=== PATIENT | male | born 1990 | race Caucasian/White ===

== ENCOUNTER → 2016-07-26 | Outpatient (REF) | payer OTHER ==
[~2016-07-26] MED LIST: PROZ20CA11 PO; SERO400T3 PO; no meds
== END ==
LOC: M SFHCPLAZ 16:51
PROVIDERS: ATTEND Physician Assistant Medical
DX: R30.0 Dysuria (principal)

== ENCOUNTER 2016-07-30 12:05 | Emergency (ER) | payer OTHER ==
[2016-07-30] MEDS ORDERED: MORPHINE 4 MG/ML 1ML SYRINGE As Ordered ONE (15:05)
[2016-07-30] MEDS ORDERED: ONDANSETRON 4MG/2ML VIAL (J2405) As Ordered ONE (15:05)
--- NOTE | 2016-07-30 15:31 | REP ---
CT ABDOMEN AND PELVIS WITHOUT CONTRAST: 07/30/2016. Comparison: 04/23/2016 CT. Clinical history: Right flank abdominal pain. Technique: Renal stone protocol without oral or IV contrast and with both coronal and sagittal reconstructions. Findings: CT abdomen: Lung bases are clear. Heart is not enlarged. There is a calcified granuloma in the left lower lobe. There is no cardiomegaly, pericardial thickening or effusion. No hiatal hernia. There is no hepatosplenomegaly. The vertical diameter of the liver is 17 cm in midclavicular line which is normal range. Left lobe not enlarged. No hepatic or splenic focal lesion, biliary dilatation or ascites in the upper abdomen. Gallbladder without calcified stone or mass. The pancreas shows no mass, ductal dilatation or inflammatory change. No peripancreatic adenopathy. Adrenal glands normal. The left kidney shows no stone, hydronephrosis or mass. The right kidney shows calcification of the anterior pyramid in the interpolar region about 2 mm size. Extrarenal pelvis noted. The right ureter is seen dilated and on image 132 in the deep pelvis just above the UVJ there is a 2.5 mm stone seen best on image 132. Bladder is nearly empty, but there is no stone within it or its wall. The right kidney is smaller than the left. There is a partial duplication with a dilated upper pole moiety while the lower pole has a separate ureter, which has normal caliber. These appear to fuse distally in the mid upper pelvis to the right of midline. The left kidney shows no stone or hydronephrosis. I do not see any duplication of the left collecting system without stones, hydronephrosis or hydroureter. No left ureteral stone. CT pelvis: Stones, distal ureteral stone as described above. No abdominal or pelvic adenopathy, ascites or free air. Bones unchanged from the previous study and without acute finding. Impression: 1. 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 The lower pole moiety is not dilated and fuses with the upper pole moiety distally. The left side without stone or hydronephrosis. No other finding. Signed by Erich Edmond MD 07/30/2016 06:00 P
[2016-07-30 15:41] LABS: BASO % 0.4 % (0.0-1.0); EOS # 0.1 K/mm3 (0.0-0.50); EOS % 0.7 % (0.0-3.0); LARGE UNSTAINED CELL # 0.2 K/mm3 (0.0-0.4); LARGE UNSTAINED CELL % 1.9 % (0.0-4.0); LYMPH # 1.8 K/mm3 (1.5-6.5); LYMPH % 15.4 % (24.0-44.0); MEAN CORPUSCULAR HEMOGLOBIN 28.7 pg (27.0-33.0); MEAN CORPUSCULAR HGB CONC 33.6 g/dl (32.0-36.5); MEAN CORPUSCULAR VOLUME 85.3 fl (80.0-96.0); MONO # 0.6 K/mm3 (0.0-0.8); NEUTROPHILS # 8.9 K/mm3 (1.8-7.7); NEUTROPHILS % 76.7 % (36.0-66.0); PLATELET COUNT, AUTOMATED 265 k/mm3 (150-450); RED CELL DISTRIBUTION WIDTH 12.6 % (11.5-14.5); WHITE BLOOD COUNT 11.6 K/mm3 (4.0-10.0)
[2016-07-30 15:52] LABS: ALBUMIN 4.3 GM/DL (3.2-5.2); ALBUMIN/GLOBULIN RATIO 1.34 (1.00-1.93); ALKALINE PHOSPHATASE 104 U/L (45-117); ALT/SGPT 28 U/L (12-78); AMYLASE 34 U/L (25-115); ANION GAP 9 MEQ/L (8-16); AST/SGOT 17 U/L (15-37); BILIRUBIN,DIRECT < 0.1 MG/DL (0.0-0.2); BILIRUBIN,TOTAL 0.4 MG/DL (0.2-1.0); BLOOD UREA NITROGEN 11 MG/DL (7-18); CALCIUM LEVEL 9.2 MG/DL (8.5-10.1); CARBON DIOXIDE LEVEL 28 MEQ/L (21-32); CHLORIDE LEVEL 105 MEQ/L (98-107); CREATININE FOR GFR 0.78 MG/DL (0.70-1.30); GLOMERULAR FILTRATION RATE > 60.0 (>60); GLUCOSE, FASTING 82 MG/DL (70-105); SODIUM LEVEL 142 MEQ/L (136-145); TOTAL PROTEIN 7.5 GM/DL (6.4-8.2)
--- NOTE | 2016-07-30 16:38 | EDDOCDS ---
Physician Documentation [facility] Name: Rex Doe Age: 26 yrs Sex: Male : 1990 Arrival Date: 07/30/2016 Time: 12:05 Bed I2 / M2 Private MD: Nida Burton R. Disposition: 07/30/16 16:27 Discharged to Home/Self Care. Impression: Calculus of ureter - right UVJ stone. - Condition is Stable. - Discharge Instructions: Kidney Stones. - Prescriptions for Ibuprofen 800 mg Oral Tablet - take 1 tablet by ORAL route every 8 hours As needed take with food; 30 tablet. Ultram 50 mg Oral Tablet - take 1 tablet by ORAL route every 6 hours As needed MDD: 4 tabs; 20 tablet. Flomax 0.4 mg Oral Capsule, Sust. Release 24 hr - take 1 capsule by ORAL route once daily 1/2 hour following the same meal each day; 30 capsule. ZOFRAN ODT 4 mg - dissolve 1 tablet by ORAL route 4 times per day As needed do not chew, do not swallow whole; 10 tablet. - Medication Reconciliation, Local Pharmacy Hours, School Release Form - 1 day form. - Follow up: Milton Hankins; When: Call to arrange an appointment; Reason: Recheck today's complaints, Continuance of care. Follow up: Emergency Department; When: As needed; Reason: Worsening of conditions. - Problem is new. - Symptoms have improved. Historical: - Allergies: Augmentin; Percocet; - Home Meds: 1. Motrin 600 mg oral tab 4-6 hours prn (Last dose: 07/30/2016 11:15) - PMHx: kidney stone left side 5 years ago; pelvis fracture; - PSHx: orchiectomy; - Social history: Smoking status: Patient states former smoker of tobacco. No barriers to communication noted, The patient speaks fluent Ukrainian, Speaks appropriately for age. - Family history: Not pertinent. - : The pt / caregiver states he / she is not on anticoagulants. Home medication list is obtained from the patient. - Exposure Risk Screening:: None identified. Vital Signs: 07/30 12:07 BP 146 / 90; Pulse 87; Resp 18; Temp 98.9(O); Pulse Ox 100% on R/A; Weight 92.08 kg / elp 203 lbs (R); Height 6 ft. 1 in. (185.42 cm) (R); Pain 10/10; 15:48 BP 144 / 90; Pulse 89; Resp 18; Temp 98.0; Pulse Ox 99% ; Pain 2/10; jam1 16:27 BP 133 / 88; Pulse 89; Resp 18; Temp 98.4; Pulse Ox 99% ; Pain 1/10; jam1 12:07 Body Mass Index 26.78 (92.08 kg, 185.42 cm) elp MDM: 12:22 UA Ordered. EDMS 13:27 [facility] Payment Agreement was scanned into [employer] and attached to record. jp5 14:45 Financial registration complete. jp5 14:49 UA Reviewed. ar2 14:50 IV Saline Lock ordered. ar2 14:50 Undress patient appropriately for examination ordered. ar2 14:51 CT ABD & PELVIS: No Contrast Ordered. EDMS 14:51 NOTHING BY MOUTH+DIET ordered. EDMS 14:52 Amylase Ordered. EDMS 14:52 Basic Metabolic Profile Ordered. EDMS 14:52 CBC with Diff Ordered. EDMS 14:52 Lipase Ordered. EDMS 14:52 Liver Profile Ordered. EDMS 14:52 morphine 4 mg IVP once ordered. ar2 14:52 Ondansetron 4 mg IVP once ordered. ar2 16:20 CBC with Diff Reviewed. ar2 16:20 Amylase Reviewed. ar2 16:20 Basic Metabolic Profile Reviewed. ar2 16:20 Lipase Reviewed. ar2 16:20 Liver Profile Reviewed. ar2 16:20 CT ABD & PELVIS: No Contrast Reviewed. ar2 16:26 Dispense Urine Strainer ordered. ar2 Administered Medications: 15:15 Drug: Ondansetron 4 mg [ondansetron HCl 2 mg/mL intravenous solution (2 mL)] Route: kpj IVP; Site: right antecubital; 15:17 Drug: morphine 4 mg [morphine 4 mg/mL intravenous cartridge (1 mL)] Route: IVP; Site: kpj right antecubital; 15:45 Follow up: Response: Pain is decreased [facility] Signatures: Dispatcher [employer] EDMS Maria Isabel Cavanaugh RN RN Diane Luu RN RN srm Peters, Mary, RN RN mcp Robertshaw, Aaron, PA-C PA-C ar2 Dale Gutierrez jp5 The chart was reviewed and I authenticate all verbal orders and agree with the evaluation and treatment provided.Attachments: 13:27 [facility] Payment Agreement jp5 MTDD
--- NOTE | 2016-07-30 16:38 | EDDOCDS ---
Nurse's Notes [facility] Name: Rex Doe Age: 26 yrs Sex: Male : 1990 Arrival Date: 07/30/2016 Time: 12:05 Bed I2 / M2 Private MD: Nida Burton R. Diagnosis: Calculus of ureter-right UVJ stone Presentation: 07/30 12:16 Presenting complaint: Patient states: RLQ pain since yesterday. vomiting 5 times in srm past 24 hours. hx of kidney stones. pt states fever of 101+ and chills took ibuprofen at 1115 today. Presenting complaint: states has right tesicular pain. 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 Adult Sepsis Screening: The patient does not have new or worsening altered mentation. Patient's respiratory rate is less than 22. Systolic blood pressure is greater than 100. Patient has a qSOFA score of 0- Negative Sepsis Screen. Suicide/Homicide risk assessment- the patient denies having any suicidal and/or homicidal ideations and does not present with any other emotional, behavioral or mental health complaints. Status: Patient is not a creative services manager or dependent. Transition of care: patient was not received from another setting of care. 12:16 Acuity: FREDERICK Level 3 [facility] 12:16 Method Of Arrival: Walkin/Carried/Asstd [facility] Triage Assessment: 12:19 General: Appears in no apparent distress, Behavior is appropriate for age, cooperative. srm Pain: Pain currently is 10 out of 10 on a pain scale. HIV screening NA for this visit Offered previously. GI: Reports since right lower quad pain radiates to testicle. Historical: - Allergies: Augmentin; Percocet; - Home Meds: 1. Motrin 600 mg oral tab 4-6 hours prn (Last dose: 07/30/2016 11:15) - PMHx: kidney stone left side 5 years ago; pelvis fracture; - PSHx: orchiectomy; - Social history: Smoking status: Patient states former smoker of tobacco. No barriers to communication noted, The patient speaks fluent Egyptian, Speaks appropriately for age. - Family history: Not pertinent. - : The pt / caregiver states he / she is not on anticoagulants. Home medication list is obtained from the patient. - Exposure Risk Screening:: None identified. Screenin:10 Screening information is obtained from the patient. Fall risk: No risks identified. kpj Assistance ADL's: requires no assistance with activities of daily living. Abuse/DV Screen: The patient / caregiver reports he/she is: not in a situation that causes fear, pain or injury. Nutritional screening: No deficits noted. Advance Directives: Currently, there is no health care proxy. There is no active DNR order. There is no living will. There is no Power of Optical Instrument Assembler. Advance directive information has not previously been placed in an [facility] medical record. Further advance directive information is declined. home support is adequate. Assessment: 15:10 General: Appears in no apparent distress, well nourished, well groomed, Behavior is kpj appropriate for age, pleasant. Pain: Location: right flank Pain currently is 9 out of 10 on a pain scale. Pain radiates to right lower quadrant Quality of pain is described as aching. Neurological: Level of Consciousness is awake, alert, Oriented to person, place, time. Respiratory: Airway is patent Respiratory effort is even, unlabored, Respiratory pattern is regular, symmetrical, Breath sounds are clear bilaterally. GI: Abdomen is flat, non- distended Bowel sounds present X 4 quads. Abd is soft X 4 quads Abd is tender to palpation in posterior aspect of right lateral abdomen and right lower quadrant Reports lower abdominal pain, nausea, vomiting, Pain is 9 out of 10 on a pain scale. Derm: Skin is pink, warm & dry. 16:00 Reassessment: Patient appears in no apparent distress at this time. Patient denies pain kpj at this time. Patient states feeling better. Patient states symptoms have improved. Pain: Location: right lower quadrant and right flank Pain currently is 1 out of 10 on a pain scale. Respiratory: Airway is patent Respiratory effort is even, unlabored. Derm: Skin is pink, warm & dry. 16:36 General: Appears in no apparent distress, Behavior is cooperative. Neurological: No mcp deficits noted. Respiratory: Airway is patent Respiratory effort is even, unlabored. Derm: Skin is pink, warm & dry. Vital Signs: 12:07 BP 146 / 90; Pulse 87; Resp 18; Temp 98.9(O); Pulse Ox 100% on R/A; Weight 92.08 kg elp (R); Height 6 ft. 1 in. (185.42 cm) (R); Pain 10/10; 15:48 BP 144 / 90; Pulse 89; Resp 18; Temp 98.0; Pulse Ox 99% ; Pain 2/10; jam1 16:27 BP 133 / 88; Pulse 89; Resp 18; Temp 98.4; Pulse Ox 99% ; Pain 1/10; jam1 12:07 Body Mass Index 26.78 (92.08 kg, 185.42 cm) elp Vitals: 12:07 Log In Time: July 30, 2016 at 12:04. elp ED Course: 12:06 Patient visited by Lisette Coronel, RENY. elp 12:06 Nida Burton is Private Physician. elp 12:06 Patient moved to Waiting elp 12:07 Patient visited by Lisette Coronel PCA. elp 12:07 Patient moved to Pre RCE elp 12:18 Triage Initiated srm 12:26 UA Sent. srm 13:27 [facility] Payment Agreement was scanned into [employer] and attached to record. jp5 14:18 Patient moved to Triage 2 hs1 14:38 Chaim Gerardo PA-C is PHCP. ar2 14:38 Rex Goddard MD is Attending Physician. ar2 14:38 Patient visited by Chaim Gerardo PA-C. ar2 14:48 Patient moved to I2 / M2 jrd 15:10 Resting quietly. Awaiting lab results. Waiting for radiology results. kpj 15:10 The patient / caregiver is instructed regarding the plan of care and ED course. Patient kpj has correct armband on for positive identification. Bed in low position. Call light in reach. Side rails up X2. Diet: Patient is NPO. 15:10 Inserted saline lock: 20 gauge in right antecubital area The patient tolerated the kpj procedure well. 16:00 IV is patent, is intact, is free of redness or swelling. No procedures done that kpj require assistance. 16:14 CT ABD & PELVIS: No Contrast Returned. EDMS 16:26 Milton Hankins is Referral Physician. ar2 Administered Medications: 15:15 Drug: Ondansetron 4 mg [ondansetron HCl 2 mg/mL intravenous solution (2 mL)] Route: kpj IVP; Site: right antecubital; 15:17 Drug: morphine 4 mg [morphine 4 mg/mL intravenous cartridge (1 mL)] Route: IVP; Site: kpj right antecubital; 15:45 Follow up: Response: Pain is decreased mcp Order Results: Lab Order: UA; SPEC'M 07/30/16 12:23 Test: APPEARANCE, URINE; Value: HAZY; Range: CLEAR; Status: F Test: COLOR, URINE; Value: YELLOW; Range: YELLOW; Status: F Test: PH,URINE; Value: 5.0; Range: 5.0-9.0; Units: UNITS; Status: F Test: SPECIFIC GRAVITY URINE AUTO; Value: 1.032; Range: 1.002-1.035; Status: F Test: PROTEIN, URINE AUTO; Value: 1+; Range: NEGATIVE; Abnormal: Above high normal; Units: mg/dL; Status: F Test: GLUCOSE, URINE (UA) AUTO; Value: NEGATIVE; Range: NEGATIVE; Units: mg/dL; Status: F Test: KETONE, URINE AUTO; Value: TRACE; Range: NEGATIVE; Abnormal: Above high normal; Units: mg/dL; Status: F Test: UROBILINOGEN, URINE AUTO; Value: 0.2; Range: 0.0-2.0; Units: mg/dL; Status: F Test: BILIRUBIN, URINE AUTO; Value: NEGATIVE; Range: NEGATIVE; Status: F Test: NITRITE, URINE AUTO; Value: NEGATIVE; Range: NEGATIVE; Status: F Test: LEUKOCYTE ESTERASE, URINE AUTO; Value: NEGATIVE; Range: NEGATIVE; Status: F Test: BLOOD, URINE BLOOD; Value: 1+; Range: NEGATIVE; Abnormal: Above high normal; Status: F Test: WBC, URINE AUTO; Value: 17; Range: 0-3; Abnormal: Above high normal; Units: /HPF; Status: F Test: RBC, URINE AUTO; Value: 0; Range: 0-3; Units: /HPF; Status: F Test: BACTERIA, URINE AUTO; Value: NEGATIVE; Range: NEGATIVE; Status: F Test: SQUAMOUS EPITHELIAL CELL UR AU; Value: 0; Range: 0-6; Units: /HPF; Status: F Test: MUCUS, URINE; Value: LARGE; Range: NEGATIVE; Status: F Test: HYALINE CAST, URINE AUTO; Value: 0; Range: 0-1; Units: /LPF; Status: F Test: AMORPHOUS SEDIMENT; Value: SMALL; Range: NEGATIVE; Abnormal: Above high normal; Status: F Lab Order: Amylase; SPEC'M 07/30/16 15:17 Test: AMYLASE; Value: 34; Range: 25-115; Units: U/L; Status: F Lab Order: Basic Metabolic Profile; SPEC'M 07/30/16 15:17 Test: GLUCOSE, FASTING; Value: 82; Range: 70-105; Units: MG/DL; Status: F Test: BLOOD UREA NITROGEN; Value: 11; Range: 7-18; Units: MG/DL; Status: F Test: CREATININE FOR GFR; Value: 0.78; Range: 0.70-1.30; Units: MG/DL; Status: F Test: GLOMERULAR FILTRATION RATE; Value: > 60.0; Range: >60; Status: F Test: SODIUM LEVEL; Value: 142; Range: 136-145; Units: MEQ/L; Status: F Test: POTASSIUM SERUM; Value: 4.0; Range: 3.5-5.1; Units: MEQ/L; Status: F Test: CHLORIDE LEVEL; Value: 105; Range: 98-107; Units: MEQ/L; Status: F Test: CARBON DIOXIDE LEVEL; Value: 28; Range: 21-32; Units: MEQ/L; Status: F Test: ANION GAP; Value: 9; Range: 8-16; Units: MEQ/L; Status: F Test: CALCIUM LEVEL; Value: 9.2; Range: 8.5-10.1; Units: MG/DL; Status: F Test Note: ; Units are mL/min/1.73 m2 Chronic Kidney Disease Staging per NKF: Stage I & II GFR >=60 Normal to Mildly Decreased Stage III GFR 30-59 Moderately Decreased Stage IV GFR 15-29 Severely Decreased Stage V GFR <15 Very Little GFR Left ESRD GFR <15 on ASSOCIATE FINANCIAL REPRESENTATIVE Lab Order: CBC with Diff; SPEC'M 07/30/16 15:17 Test: WHITE BLOOD COUNT; Value: 11.6; Range: 4.0-10.0; Abnormal: Above high normal; Units: K/mm3; Status: F Test: RED BLOOD COUNT; Value: 5.21; Range: 4.30-6.10; Units: M/mm3; Status: F Test: HEMOGLOBIN; Value: 14.9; Range: 14.0-18.0; Units: g/dl; Status: F Test: HEMATOCRIT; Value: 44.4; Range: 42.0-52.0; Units: %; Status: F Test: MEAN CORPUSCULAR VOLUME; Value: 85.3; Range: 80.0-96.0; Units: fl; Status: F Test: MEAN CORPUSCULAR HEMOGLOBIN; Value: 28.7; Range: 27.0-33.0; Units: pg; Status: F Test: MEAN CORPUSCULAR HGB CONC; Value: 33.6; Range: 32.0-36.5; Units: g/dl; Status: F Test: RED CELL DISTRIBUTION WIDTH; Value: 12.6; Range: 11.5-14.5; Units: %; Status: F Test: PLATELET COUNT, AUTOMATED; Value: 265; Range: 150-450; Units: k/mm3; Status: F Test: NEUTROPHILS %; Value: 76.7; Range: 36.0-66.0; Abnormal: Above high normal; Units: %; Status: F Test: LYMPH %; Value: 15.4; Range: 24.0-44.0; Abnormal: Below low normal; Units: %; Status: F Test: MONO %; Value: 5.0; Range: 0.0-5.0; Units: %; Status: F Test: EOS %; Value: 0.7; Range: 0.0-3.0; Units: %; Status: F Test: BASO %; Value: 0.4; Range: 0.0-1.0; Units: %; Status: F Test: LARGE UNSTAINED CELL %; Value: 1.9; Range: 0.0-4.0; Units: %; Status: F Test: NEUTROPHILS #; Value: 8.9; Range: 1.8-7.7; Abnormal: Above high normal; Units: K/mm3; Status: F Test: LYMPH #; Value: 1.8; Range: 1.5-6.5; Units: K/mm3; Status: F Test: MONO #; Value: 0.6; Range: 0.0-0.8; Units: K/mm3; Status: F Test: EOS #; Value: 0.1; Range: 0.0-0.50; Units: K/mm3; Status: F Test: BASO #; Value: 0.0; Range: 0.0-0.2; Units: K/mm3; Status: F Test: LARGE UNSTAINED CELL #; Value: 0.2; Range: 0.0-0.4; Units: K/mm3; Status: F Lab Order: Lipase; SPEC'M 07/30/16 15:17 Test: LIPASE; Value: 143; Range: 73-393; Units: U/L; Status: F Lab Order: Liver Profile; SPEC'M 07/30/16 15:17 Test: AST/SGOT; Value: 17; Range: 15-37; Units: U/L; Status: F Test: ALT/SGPT; Value: 28; Range: 12-78; Units: U/L; Status: F Test: ALKALINE PHOSPHATASE; Value: 104; Range: 45-117; Units: U/L; Status: F Test: BILIRUBIN,TOTAL; Value: 0.4; Range: 0.2-1.0; Units: MG/DL; Status: F Test: BILIRUBIN,DIRECT; Value: < 0.1; Range: 0.0-0.2; Units: MG/DL; Status: F Test: TOTAL PROTEIN; Value: 7.5; Range: 6.4-8.2; Units: GM/DL; Status: F Test: ALBUMIN; Value: 4.3; Range: 3.2-5.2; Units: GM/DL; Status: F Test: ALBUMIN/GLOBULIN RATIO; Value: 1.34; Range: 1.00-1.93; Status: F Radiology Order: CT ABD & PELVIS: No Contrast Test: CT ABD & PELVIS: No Contrast REASON FOR EXAMINATION: right flank/abdominal pain; CT ABDOMEN AND PELVIS WITHOUT CONTRAST: 07/30/2016.; ; Comparison: 04/23/2016 CT.; ; Clinical history: Right flank abdominal pain.; ; Technique: Renal stone protocol without oral or IV contrast and with both; coronal and sagittal reconstructions.; ; Findings:; ; CT abdomen: Lung bases are clear. Heart is not enlarged. There is a calcified; granuloma in the left lower lobe. There is no cardiomegaly, pericardial; thickening or effusion. No hiatal hernia. There is no hepatosplenomegaly. The; vertical diameter of the liver is 17 cm in midclavicular line which is normal; range. Left lobe not enlarged. No hepatic or splenic focal lesion, biliary; dilatation or ascites in the upper abdomen. Gallbladder without calcified stone; or mass. The pancreas shows no mass, ductal dilatation or inflammatory change.; No peripancreatic adenopathy. Adrenal glands normal. The left kidney shows no; stone, hydronephrosis or mass. The right kidney shows calcification of the; anterior pyramid in the interpolar region about 2 mm size. Extrarenal pelvis; noted. The right ureter is seen dilated and on image 132 in the deep pelvis just; above the UVJ there is a 2.5 mm stone seen best on image 132. Bladder is nearly; empty, but there is no stone within it or its wall. The right kidney is smaller; than the left. There is a partial duplication with a dilated upper pole moiety; while the lower pole has a separate ureter, which has normal caliber. These; appear to fuse distally in the mid upper pelvis to the right of midline. The; left kidney shows no stone or hydronephrosis. I do not see any duplication of; the left collecting system without stones, hydronephrosis or hydroureter. No; left ureteral stone.; ; CT pelvis: Stones, distal ureteral stone as described above. No abdominal or; pelvic adenopathy, ascites or free air. 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 The left side without stone or hydronephrosis. No other finding.; ; ; ; ; Unreviewed; Outcome: 16:00 CT Study completed. [facility] 16:27 Discharge ordered by Provider. ar2 16:36 Discharge Assessment: patient administered narcotics - no. The following High Risk [facility] Discharge criteria are identified: None. Discharged to home ambulatory. Condition: stable. Discharge instructions given to patient, Instructed on discharge instructions, follow up and referral plans. medication usage, Demonstrated understanding of instructions, medications, Pt was receptive of discharge instructions/ teaching. Prescriptions given X 4. Property sent home with patient. 16:37 Patient left the ED. [facility] Signatures: Dispatcher [employer] EDMS Jobson, Maria Isabel, RN RN kpj Diane Chavez, RN RN [facility] Yepez, Corinna, RN RN Leanna Little, JAVA ANDROID DEVELOPER JAVA ANDROID DEVELOPER jam1 Chaim Gerardo, ROSIE moore2 Mahi Penny RN RN hs1 Lisette Coronel, JAVA ANDROID DEVELOPER JAVA ANDROID DEVELOPER elp Jersey Mackay, JAVA ANDROID DEVELOPER JAVA ANDROID DEVELOPER jrd Dale Gutierrez jp5 MTDD
--- NOTE | 2016-08-01 17:38 | EDDOCDS ---
Physician Documentation [facility] Name: Rex Doe Age: 26 yrs Sex: Male : 1990 Arrival Date: 07/30/2016 Time: 12:05 Bed I2 / M2 Private MD: Nida Burton R. Disposition: 07/30/16 16:27 Discharged to Home/Self Care. Impression: Calculus of ureter - right UVJ stone. - Condition is Stable. - Discharge Instructions: Kidney Stones. - Prescriptions for Ibuprofen 800 mg Oral Tablet - take 1 tablet by ORAL route every 8 hours As needed take with food; 30 tablet. Ultram 50 mg Oral Tablet - take 1 tablet by ORAL route every 6 hours As needed MDD: 4 tabs; 20 tablet. Flomax 0.4 mg Oral Capsule, Sust. Release 24 hr - take 1 capsule by ORAL route once daily 1/2 hour following the same meal each day; 30 capsule. ZOFRAN ODT 4 mg - dissolve 1 tablet by ORAL route 4 times per day As needed do not chew, do not swallow whole; 10 tablet. - Medication Reconciliation, Local Pharmacy Hours, School Release Form - 1 day form. - Follow up: Milton Hankins; When: Call to arrange an appointment; Reason: Recheck today's complaints, Continuance of care. Follow up: Emergency Department; When: As needed; Reason: Worsening of conditions. - Problem is new. - Symptoms have improved. Historical: - Allergies: Augmentin; Percocet; - Home Meds: 1. Motrin 600 mg oral tab 4-6 hours prn (Last dose: 07/30/2016 11:15) - PMHx: kidney stone left side 5 years ago; pelvis fracture; - PSHx: orchiectomy; - Social history: Smoking status: Patient states former smoker of tobacco. No barriers to communication noted, The patient speaks fluent Belarusian, Speaks appropriately for age. - Family history: Not pertinent. - : The pt / caregiver states he / she is not on anticoagulants. Home medication list is obtained from the patient. - Exposure Risk Screening:: None identified. Vital Signs: 07/30 12:07 BP 146 / 90; Pulse 87; Resp 18; Temp 98.9(O); Pulse Ox 100% on R/A; Weight 92.08 kg / elp 203 lbs (R); Height 6 ft. 1 in. (185.42 cm) (R); Pain 10/10; 15:48 BP 144 / 90; Pulse 89; Resp 18; Temp 98.0; Pulse Ox 99% ; Pain 2/10; jam1 16:27 BP 133 / 88; Pulse 89; Resp 18; Temp 98.4; Pulse Ox 99% ; Pain 1/10; jam1 12:07 Body Mass Index 26.78 (92.08 kg, 185.42 cm) elp MDM: 12:22 UA Ordered. EDMS 13:27 [facility] Payment Agreement was scanned into [employer] and attached to record. jp5 14:45 Financial registration complete. jp5 14:49 UA Reviewed. ar2 14:50 IV Saline Lock ordered. ar2 14:50 Undress patient appropriately for examination ordered. ar2 14:51 CT ABD & PELVIS: No Contrast Ordered. EDMS 14:51 NOTHING BY MOUTH+DIET ordered. EDMS 14:52 Amylase Ordered. EDMS 14:52 Basic Metabolic Profile Ordered. EDMS 14:52 CBC with Diff Ordered. EDMS 14:52 Lipase Ordered. EDMS 14:52 Liver Profile Ordered. EDMS 14:52 morphine 4 mg IVP once ordered. ar2 14:52 Ondansetron 4 mg IVP once ordered. ar2 16:20 CBC with Diff Reviewed. ar2 16:20 Amylase Reviewed. ar2 16:20 Basic Metabolic Profile Reviewed. ar2 16:20 Lipase Reviewed. ar2 16:20 Liver Profile Reviewed. ar2 16:20 CT ABD & PELVIS: No Contrast Reviewed. ar2 16:26 Dispense Urine Strainer ordered. ar2 07/31 11:04 T-Sheet-- Draft Copy was scanned into [employer] and attached to record. gb 11:04 Radiology Report was scanned into [employer] and attached to record. gb Administered Medications: 07/30 15:15 Drug: Ondansetron 4 mg [ondansetron HCl 2 mg/mL intravenous solution (2 mL)] Route: kpj IVP; Site: right antecubital; 15:17 Drug: morphine 4 mg [morphine 4 mg/mL intravenous cartridge (1 mL)] Route: IVP; Site: kpj right antecubital; 15:45 Follow up: Response: Pain is decreased mcp Signatures: Dispatcher [employer] Maria Isabel Lucia RN RN kpDiane Luu RN RN Corinna Burnham, RN RN Jeannette Heller, Fortunato Reg gb Chaim Gerardo PA-C PA-C ar2 Price, Jennalee jp5 The chart was reviewed and I authenticate all verbal orders and agree with the evaluation and treatment provided.Attachments: 13:27 [facility] Payment Agreement jp5 07/31 11:04 T-Sheet-- Draft Copy gb Chart Complete MTDD
--- NOTE | 2016-08-01 17:38 | EDDOCDS ---
Nurse's Notes [facility] Name: Rex Doe Age: 26 yrs Sex: Male : 1990 Arrival Date: 07/30/2016 Time: 12:05 Bed I2 / M2 Private MD: Nida Burton R. Diagnosis: Calculus of ureter-right UVJ stone Presentation: 07/30 12:16 Presenting complaint: Patient states: RLQ pain since yesterday. vomiting 5 times in srm past 24 hours. hx of kidney stones. pt states fever of 101+ and chills took ibuprofen at 1115 today. Presenting complaint: states has right tesicular pain. 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 Adult Sepsis Screening: The patient does not have new or worsening altered mentation. Patient's respiratory rate is less than 22. Systolic blood pressure is greater than 100. Patient has a qSOFA score of 0- Negative Sepsis Screen. Suicide/Homicide risk assessment- the patient denies having any suicidal and/or homicidal ideations and does not present with any other emotional, behavioral or mental health complaints. Status: Patient is not a repair servicer or dependent. Transition of care: patient was not received from another setting of care. 12:16 Acuity: FREDERICK Level 3 [facility] 12:16 Method Of Arrival: Walkin/Carried/Asstd [facility] Triage Assessment: 12:19 General: Appears in no apparent distress, Behavior is appropriate for age, cooperative. srm Pain: Pain currently is 10 out of 10 on a pain scale. HIV screening NA for this visit Offered previously. GI: Reports since right lower quad pain radiates to testicle. Historical: - Allergies: Augmentin; Percocet; - Home Meds: 1. Motrin 600 mg oral tab 4-6 hours prn (Last dose: 07/30/2016 11:15) - PMHx: kidney stone left side 5 years ago; pelvis fracture; - PSHx: orchiectomy; - Social history: Smoking status: Patient states former smoker of tobacco. No barriers to communication noted, The patient speaks fluent Bahamian, Speaks appropriately for age. - Family history: Not pertinent. - : The pt / caregiver states he / she is not on anticoagulants. Home medication list is obtained from the patient. - Exposure Risk Screening:: None identified. Screenin:10 Screening information is obtained from the patient. Fall risk: No risks identified. kpj Assistance ADL's: requires no assistance with activities of daily living. Abuse/DV Screen: The patient / caregiver reports he/she is: not in a situation that causes fear, pain or injury. Nutritional screening: No deficits noted. Advance Directives: Currently, there is no health care proxy. There is no active DNR order. There is no living will. There is no Power of Freight Coordinator. Advance directive information has not previously been placed in an [facility] medical record. Further advance directive information is declined. home support is adequate. Assessment: 15:10 General: Appears in no apparent distress, well nourished, well groomed, Behavior is kpj appropriate for age, pleasant. Pain: Location: right flank Pain currently is 9 out of 10 on a pain scale. Pain radiates to right lower quadrant Quality of pain is described as aching. Neurological: Level of Consciousness is awake, alert, Oriented to person, place, time. Respiratory: Airway is patent Respiratory effort is even, unlabored, Respiratory pattern is regular, symmetrical, Breath sounds are clear bilaterally. GI: Abdomen is flat, non- distended Bowel sounds present X 4 quads. Abd is soft X 4 quads Abd is tender to palpation in posterior aspect of right lateral abdomen and right lower quadrant Reports lower abdominal pain, nausea, vomiting, Pain is 9 out of 10 on a pain scale. Derm: Skin is pink, warm & dry. 16:00 Reassessment: Patient appears in no apparent distress at this time. Patient denies pain kpj at this time. Patient states feeling better. Patient states symptoms have improved. Pain: Location: right lower quadrant and right flank Pain currently is 1 out of 10 on a pain scale. Respiratory: Airway is patent Respiratory effort is even, unlabored. Derm: Skin is pink, warm & dry. 16:36 General: Appears in no apparent distress, Behavior is cooperative. Neurological: No mcp deficits noted. Respiratory: Airway is patent Respiratory effort is even, unlabored. Derm: Skin is pink, warm & dry. Vital Signs: 12:07 BP 146 / 90; Pulse 87; Resp 18; Temp 98.9(O); Pulse Ox 100% on R/A; Weight 92.08 kg elp (R); Height 6 ft. 1 in. (185.42 cm) (R); Pain 10/10; 15:48 BP 144 / 90; Pulse 89; Resp 18; Temp 98.0; Pulse Ox 99% ; Pain 2/10; jam1 16:27 BP 133 / 88; Pulse 89; Resp 18; Temp 98.4; Pulse Ox 99% ; Pain 1/10; jam1 12:07 Body Mass Index 26.78 (92.08 kg, 185.42 cm) elp Vitals: 12:07 Log In Time: July 30, 2016 at 12:04. elp ED Course: 12:06 Patient visited by Lisette Coronel PCA. elp 12:06 Nida Burton is Private Physician. elp 12:06 Patient moved to Waiting elp 12:07 Patient visited by Lisette Coronel PCA. elp 12:07 Patient moved to Pre RCE elp 12:18 Triage Initiated srm 12:26 UA Sent. srm 13:27 [facility] Payment Agreement was scanned into [email or web address] and attached to record. jp5 14:18 Patient moved to Triage 2 hs1 14:38 [facility] ar2 14:38 Rex Goddard MD is Attending Physician. ar2 14:38 Patient visited by Chaim Gerardo PA-C. ar2 14:48 Patient moved to I2 / M2 jrd 15:10 Resting quietly. Awaiting lab results. Waiting for radiology results. kpj 15:10 The patient / caregiver is instructed regarding the plan of care and ED course. Patient kpj has correct armband on for positive identification. Bed in low position. Call light in reach. Side rails up X2. Diet: Patient is NPO. 15:10 Inserted saline lock: 20 gauge in right antecubital area The patient tolerated the kpj procedure well. 16:00 IV is patent, is intact, is free of redness or swelling. No procedures done that kpj require assistance. 16:14 CT ABD & PELVIS: No Contrast Returned. EDMS 16:26 Milton Hankins is Referral Physician. ar2 18:16 CT ABD & PELVIS: No Contrast Returned. EDMS 07/31 11:04 T-Sheet-- Draft Copy was scanned into [email or web address] and attached to record. gb 11:04 Radiology Report was scanned into [email or web address] and attached to record. gb Administered Medications: 07/30 15:15 Drug: Ondansetron 4 mg [ondansetron HCl 2 mg/mL intravenous solution (2 mL)] Route: kpj IVP; Site: right antecubital; 15:17 Drug: morphine 4 mg [morphine 4 mg/mL intravenous cartridge (1 mL)] Route: IVP; Site: kpj right antecubital; 15:45 Follow up: Response: Pain is decreased mcp Order Results: Lab Order: UA; SPEC'M 07/30/16 12:23 Test: APPEARANCE, URINE; Value: HAZY; Range: CLEAR; Status: F Test: COLOR, URINE; Value: YELLOW; Range: YELLOW; Status: F Test: PH,URINE; Value: 5.0; Range: 5.0-9.0; Units: UNITS; Status: F Test: SPECIFIC GRAVITY URINE AUTO; Value: 1.032; Range: 1.002-1.035; Status: F Test: PROTEIN, URINE AUTO; Value: 1+; Range: NEGATIVE; Abnormal: Above high normal; Units: mg/dL; Status: F Test: GLUCOSE, URINE (UA) AUTO; Value: NEGATIVE; Range: NEGATIVE; Units: mg/dL; Status: F Test: KETONE, URINE AUTO; Value: TRACE; Range: NEGATIVE; Abnormal: Above high normal; Units: mg/dL; Status: F Test: UROBILINOGEN, URINE AUTO; Value: 0.2; Range: 0.0-2.0; Units: mg/dL; Status: F Test: BILIRUBIN, URINE AUTO; Value: NEGATIVE; Range: NEGATIVE; Status: F Test: NITRITE, URINE AUTO; Value: NEGATIVE; Range: NEGATIVE; Status: F Test: LEUKOCYTE ESTERASE, URINE AUTO; Value: NEGATIVE; Range: NEGATIVE; Status: F Test: BLOOD, URINE BLOOD; Value: 1+; Range: NEGATIVE; Abnormal: Above high normal; Status: F Test: WBC, URINE AUTO; Value: 17; Range: 0-3; Abnormal: Above high normal; Units: /HPF; Status: F Test: RBC, URINE AUTO; Value: 0; Range: 0-3; Units: /HPF; Status: F Test: BACTERIA, URINE AUTO; Value: NEGATIVE; Range: NEGATIVE; Status: F Test: SQUAMOUS EPITHELIAL CELL UR AU; Value: 0; Range: 0-6; Units: /HPF; Status: F Test: MUCUS, URINE; Value: LARGE; Range: NEGATIVE; Status: F Test: HYALINE CAST, URINE AUTO; Value: 0; Range: 0-1; Units: /LPF; Status: F Test: AMORPHOUS SEDIMENT; Value: SMALL; Range: NEGATIVE; Abnormal: Above high normal; Status: F Lab Order: Amylase; SPEC'M 07/30/16 15:17 Test: AMYLASE; Value: 34; Range: 25-115; Units: U/L; Status: F Lab Order: Basic Metabolic Profile; SPEC'M 07/30/16 15:17 Test: GLUCOSE, FASTING; Value: 82; Range: 70-105; Units: MG/DL; Status: F Test: BLOOD UREA NITROGEN; Value: 11; Range: 7-18; Units: MG/DL; Status: F Test: CREATININE FOR GFR; Value: 0.78; Range: 0.70-1.30; Units: MG/DL; Status: F Test: GLOMERULAR FILTRATION RATE; Value: > 60.0; Range: >60; Status: F Test: SODIUM LEVEL; Value: 142; Range: 136-145; Units: MEQ/L; Status: F Test: POTASSIUM SERUM; Value: 4.0; Range: 3.5-5.1; Units: MEQ/L; Status: F Test: CHLORIDE LEVEL; Value: 105; Range: 98-107; Units: MEQ/L; Status: F Test: CARBON DIOXIDE LEVEL; Value: 28; Range: 21-32; Units: MEQ/L; Status: F Test: ANION GAP; Value: 9; Range: 8-16; Units: MEQ/L; Status: F Test: CALCIUM LEVEL; Value: 9.2; Range: 8.5-10.1; Units: MG/DL; Status: F Test Note: ; Units are mL/min/1.73 m2 Chronic Kidney Disease Staging per NKF: Stage I & II GFR >=60 Normal to Mildly Decreased Stage III GFR 30-59 Moderately Decreased Stage IV GFR 15-29 Severely Decreased Stage V GFR <15 Very Little GFR Left ESRD GFR <15 on SLEEP LAB TECHNICIAN Lab Order: CBC with Diff; SPEC'M 07/30/16 15:17 Test: WHITE BLOOD COUNT; Value: 11.6; Range: 4.0-10.0; Abnormal: Above high normal; Units: K/mm3; Status: F Test: RED BLOOD COUNT; Value: 5.21; Range: 4.30-6.10; Units: M/mm3; Status: F Test: HEMOGLOBIN; Value: 14.9; Range: 14.0-18.0; Units: g/dl; Status: F Test: HEMATOCRIT; Value: 44.4; Range: 42.0-52.0; Units: %; Status: F Test: MEAN CORPUSCULAR VOLUME; Value: 85.3; Range: 80.0-96.0; Units: fl; Status: F Test: MEAN CORPUSCULAR HEMOGLOBIN; Value: 28.7; Range: 27.0-33.0; Units: pg; Status: F Test: MEAN CORPUSCULAR HGB CONC; Value: 33.6; Range: 32.0-36.5; Units: g/dl; Status: F Test: RED CELL DISTRIBUTION WIDTH; Value: 12.6; Range: 11.5-14.5; Units: %; Status: F Test: PLATELET COUNT, AUTOMATED; Value: 265; Range: 150-450; Units: k/mm3; Status: F Test: NEUTROPHILS %; Value: 76.7; Range: 36.0-66.0; Abnormal: Above high normal; Units: %; Status: F Test: LYMPH %; Value: 15.4; Range: 24.0-44.0; Abnormal: Below low normal; Units: %; Status: F Test: MONO %; Value: 5.0; Range: 0.0-5.0; Units: %; Status: F Test: EOS %; Value: 0.7; Range: 0.0-3.0; Units: %; Status: F Test: BASO %; Value: 0.4; Range: 0.0-1.0; Units: %; Status: F Test: LARGE UNSTAINED CELL %; Value: 1.9; Range: 0.0-4.0; Units: %; Status: F Test: NEUTROPHILS #; Value: 8.9; Range: 1.8-7.7; Abnormal: Above high normal; Units: K/mm3; Status: F Test: LYMPH #; Value: 1.8; Range: 1.5-6.5; Units: K/mm3; Status: F Test: MONO #; Value: 0.6; Range: 0.0-0.8; Units: K/mm3; Status: F Test: EOS #; Value: 0.1; Range: 0.0-0.50; Units: K/mm3; Status: F Test: BASO #; Value: 0.0; Range: 0.0-0.2; Units: K/mm3; Status: F Test: LARGE UNSTAINED CELL #; Value: 0.2; Range: 0.0-0.4; Units: K/mm3; Status: F Lab Order: Lipase; SPEC'M 07/30/16 15:17 Test: LIPASE; Value: 143; Range: 73-393; Units: U/L; Status: F Lab Order: Liver Profile; SPEC'M 07/30/16 15:17 Test: AST/SGOT; Value: 17; Range: 15-37; Units: U/L; Status: F Test: ALT/SGPT; Value: 28; Range: 12-78; Units: U/L; Status: F Test: ALKALINE PHOSPHATASE; Value: 104; Range: 45-117; Units: U/L; Status: F Test: BILIRUBIN,TOTAL; Value: 0.4; Range: 0.2-1.0; Units: MG/DL; Status: F Test: BILIRUBIN,DIRECT; Value: < 0.1; Range: 0.0-0.2; Units: MG/DL; Status: F Test: TOTAL PROTEIN; Value: 7.5; Range: 6.4-8.2; Units: GM/DL; Status: F Test: ALBUMIN; Value: 4.3; Range: 3.2-5.2; Units: GM/DL; Status: F Test: ALBUMIN/GLOBULIN RATIO; Value: 1.34; Range: 1.00-1.93; Status: F Radiology Order: CT ABD & PELVIS: No Contrast Test: CT ABD & PELVIS: No Contrast REASON FOR EXAMINATION: right flank/abdominal pain; CT ABDOMEN AND PELVIS WITHOUT CONTRAST: 07/30/2016.; ; Comparison: 04/23/2016 CT.; ; Clinical history: Right flank abdominal pain.; ; Technique: Renal stone protocol without oral or IV contrast and with both; coronal and sagittal reconstructions.; ; Findings:; ; CT abdomen: Lung bases are clear. Heart is not enlarged. There is a calcified; granuloma in the left lower lobe. There is no cardiomegaly, pericardial; thickening or effusion. No hiatal hernia. There is no hepatosplenomegaly. The; vertical diameter of the liver is 17 cm in midclavicular line which is normal; range. Left lobe not enlarged. No hepatic or splenic focal lesion, biliary; dilatation or ascites in the upper abdomen. Gallbladder without calcified stone; or mass. The pancreas shows no mass, ductal dilatation or inflammatory change.; No peripancreatic adenopathy. Adrenal glands normal. The left kidney shows no; stone, hydronephrosis or mass. The right kidney shows calcification of the; anterior pyramid in the interpolar region about 2 mm size. Extrarenal pelvis; noted. The right ureter is seen dilated and on image 132 in the deep pelvis just; above the UVJ there is a 2.5 mm stone seen best on image 132. Bladder is nearly; empty, but there is no stone within it or its wall. The right kidney is smaller; than the left. There is a partial duplication with a dilated upper pole moiety; while the lower pole has a separate ureter, which has normal caliber. These; appear to fuse distally in the mid upper pelvis to the right of midline. The; left kidney shows no stone or hydronephrosis. I do not see any duplication of; the left collecting system without stones, hydronephrosis or hydroureter. No; left ureteral stone.; ; CT pelvis: Stones, distal ureteral stone as described above. No abdominal or; pelvic adenopathy, ascites or free air. Bones unchanged from the previous study; and without acute finding.; ; Impression:; ; 1. 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 The lower pole moiety is not dilated and fuses with the upper pole moiety; distally. The left side without stone or hydronephrosis. No other finding.; ; ; Signed by; Erich Edmond MD 07/30/2016 06:00 P; Outcome: 16:00 CT Study completed. [facility] 16:27 Discharge ordered by Provider. [facility] 16:36 Discharge Assessment: patient administered narcotics - no. The following High Risk [facility] Discharge criteria are identified: None. Discharged to home ambulatory. Condition: stable. Discharge instructions given to patient, Instructed on discharge instructions, follow up and referral plans. medication usage, Demonstrated understanding of instructions, medications, Pt was receptive of discharge instructions/ teaching. Prescriptions given X 4. Property sent home with patient. 16:37 Patient left the ED. [facility] Signatures: Dispatcher [employer] EDRI Maria Isabel Cavanaugh RN RN Diane Durand RN RN Corinna Burnham RN RN mcp Murphy, Jane, PODIATRIC AIDE PODIATRIC AIDE jam1 Jeannette Lara, Reg Reg gb Chaim Gerardo, PA-Otilio PA-Otilio ar2 Mahi Penny RN RN hs1 Lisette Coronel, PODIATRIC AIDE PODIATRIC AIDE Jersey Aleman, PODIATRIC AIDE PODIATRIC AIDE Dale Hernandez jp5 Chart Complete MTDLissette
--- NOTE | 2016-08-01 17:38 | EDDOCDS ---
Physician Documentation [facility] Name: Rex Doe Age: 26 yrs Sex: Male : 1990 Arrival Date: 07/30/2016 Time: 12:05 Bed I2 / M2 Private MD: Nida Burton R. Disposition: 07/30/16 16:27 Discharged to Home/Self Care. Impression: Calculus of ureter - right UVJ stone. - Condition is Stable. - Discharge Instructions: Kidney Stones. - Prescriptions for Ibuprofen 800 mg Oral Tablet - take 1 tablet by ORAL route every 8 hours As needed take with food; 30 tablet. Ultram 50 mg Oral Tablet - take 1 tablet by ORAL route every 6 hours As needed MDD: 4 tabs; 20 tablet. Flomax 0.4 mg Oral Capsule, Sust. Release 24 hr - take 1 capsule by ORAL route once daily 1/2 hour following the same meal each day; 30 capsule. ZOFRAN ODT 4 mg - dissolve 1 tablet by ORAL route 4 times per day As needed do not chew, do not swallow whole; 10 tablet. - Medication Reconciliation, Local Pharmacy Hours, School Release Form - 1 day form. - Follow up: Milton Hankins; When: Call to arrange an appointment; Reason: Recheck today's complaints, Continuance of care. Follow up: Emergency Department; When: As needed; Reason: Worsening of conditions. - Problem is new. - Symptoms have improved. Historical: - Allergies: Augmentin; Percocet; - Home Meds: 1. Motrin 600 mg oral tab 4-6 hours prn (Last dose: 07/30/2016 11:15) - PMHx: kidney stone left side 5 years ago; pelvis fracture; - PSHx: orchiectomy; - Social history: Smoking status: Patient states former smoker of tobacco. No barriers to communication noted, The patient speaks fluent Syriac, Speaks appropriately for age. - Family history: Not pertinent. - : The pt / caregiver states he / she is not on anticoagulants. Home medication list is obtained from the patient. - Exposure Risk Screening:: None identified. Vital Signs: 07/30 12:07 BP 146 / 90; Pulse 87; Resp 18; Temp 98.9(O); Pulse Ox 100% on R/A; Weight 92.08 kg / elp 203 lbs (R); Height 6 ft. 1 in. (185.42 cm) (R); Pain 10/10; 15:48 BP 144 / 90; Pulse 89; Resp 18; Temp 98.0; Pulse Ox 99% ; Pain 2/10; jam1 16:27 BP 133 / 88; Pulse 89; Resp 18; Temp 98.4; Pulse Ox 99% ; Pain 1/10; jam1 12:07 Body Mass Index 26.78 (92.08 kg, 185.42 cm) elp MDM: 12:22 UA Ordered. EDMS 13:27 [facility] Payment Agreement was scanned into [employer] and attached to record. jp5 14:45 Financial registration complete. jp5 14:49 UA Reviewed. ar2 14:50 IV Saline Lock ordered. ar2 14:50 Undress patient appropriately for examination ordered. ar2 14:51 CT ABD & PELVIS: No Contrast Ordered. EDMS 14:51 NOTHING BY MOUTH+DIET ordered. EDMS 14:52 Amylase Ordered. EDMS 14:52 Basic Metabolic Profile Ordered. EDMS 14:52 CBC with Diff Ordered. EDMS 14:52 Lipase Ordered. EDMS 14:52 Liver Profile Ordered. EDMS 14:52 morphine 4 mg IVP once ordered. ar2 14:52 Ondansetron 4 mg IVP once ordered. ar2 16:20 CBC with Diff Reviewed. ar2 16:20 Amylase Reviewed. ar2 16:20 Basic Metabolic Profile Reviewed. ar2 16:20 Lipase Reviewed. ar2 16:20 Liver Profile Reviewed. ar2 16:20 CT ABD & PELVIS: No Contrast Reviewed. ar2 16:26 Dispense Urine Strainer ordered. ar2 07/31 11:04 T-Sheet-- Draft Copy was scanned into [employer] and attached to record. gb 11:04 Radiology Report was scanned into [employer] and attached to record. gb Administered Medications: 07/30 15:15 Drug: Ondansetron 4 mg [ondansetron HCl 2 mg/mL intravenous solution (2 mL)] Route: kpj IVP; Site: right antecubital; 15:17 Drug: morphine 4 mg [morphine 4 mg/mL intravenous cartridge (1 mL)] Route: IVP; Site: kpj right antecubital; 15:45 Follow up: Response: Pain is decreased mcp Signatures: Dispatcher [employer] Maria Isabel Lucia RN RN kpDiane Luu RN RN Corinna Burnham, RN RN Jeannette Heller, Fortunato Reg gb Chaim Gerardo PA-C PA-C ar2 Price, Jennalee jp5 The chart was reviewed and I authenticate all verbal orders and agree with the evaluation and treatment provided.Attachments: 13:27 [facility] Payment Agreement jp5 07/31 11:04 T-Sheet-- Draft Copy gb Chart Complete MTDD
== END 2016-07-30 16:37 | disposition home or self-care (01) ==
LOC: M ED 12:05
DX: N20.1 Calculus of ureter (principal); Z87.442 Personal history of urinary calculi; Z87.891 Personal history of nicotine dependence; Z88.0 Allergy status to penicillin; Z88.5 Allergy status to narcotic agent
CPT/HCPCS: 74176; 80048; 80076; 81001; 82150; 83690; 85025; 96374; 96375; 99284; J2405

== ENCOUNTER → 2016-08-16 | Outpatient (CLI) | payer OTHER ==
--- NOTE | 2016-08-16 11:17 | REP ---
MRI BRAIN WITHOUT AND WITH CONTRAST: HISTORY: Hypogonadism. There are no areas of abnormal signal intensity in the brain. There is no intraparenchymal hemorrhage, infarct, mass or midline shift. There is no abnormal enhancement. The ventricular system is normal in appearance. There is no extracerebral collection. The pituitary gland is normal in size and signal intensity. The pituitary gland measures 7.2 mm in height. There is homogeneous enhancement with contrast. The infundibulum is midline. The cavernous sinuses, optic chiasm and hypothalamus are normal in appearance. Minimal mucosal thickening is present in the right maxillary sinus. IMPRESSION: There is no intracranial lesion. Signed by Yobani Deleon MD 08/16/2016 11:43 A
== END ==
LOC: M RAD 09:12
PROVIDERS: ATTEND Physician Assistant Medical
DX: E29.1 Testicular hypofunction (principal)

== ENCOUNTER 2016-09-16 18:15 | Emergency (ER) | payer OTHER, MEDICAID ==
[~2016-09-16] VITALS: Ht 188 cm; Wt 96.2 kg
[2016-09-16] MEDS ORDERED: ONDANSETRON 4 MG ORAL DISINTEGRATING TAB (S0181) PO ONE (20:00)
[2016-09-16] MEDS ORDERED: NORCO, ANEXSIA 5/325MG TABLET (HYDROcodone/ACETAMINOPHEN) PO ONE (20:00)
[2016-09-16] MEDS ORDERED: ZOFR4TAB3 PO (20:02)
[2016-09-16] MEDS ORDERED: HYDR-3713 PO (20:02)
[2016-09-16 20:04] VITALS: BP 132/85
== END 2016-09-16 20:10 | disposition home or self-care (01) ==
LOC: M ED 19:16
DX: R10.30 Lower abdominal pain, unspecified (principal); Z87.442 Personal history of urinary calculi; F41.9 Anxiety disorder, unspecified; F32.9 Major depressive disorder, single episode, unspecified; Z88.8 Allergy status to other drugs, medicaments and biological substances; Z88.6 Allergy status to analgesic agent; Z87.891 Personal history of nicotine dependence

== ENCOUNTER 2016-09-21 17:36 | Emergency (ER) | payer OTHER, MEDICAID ==
[~2016-09-21] VITALS: Ht 188 cm; Wt 91.6 kg
[~2016-09-21 17:36] MED LIST changes: +HYDR-3713 PO; +ZOFR4TAB3 PO
[2016-09-21] MEDS ORDERED: IBUP600T26 PO (17:53)
[2016-09-21] MEDS ORDERED: TYLE500T78 PO (17:53)
[2016-09-21] MEDS ORDERED: ALBUTEROL SULFATE 2.5 MG/0.5 ML INH NEB SOLN NEB ONE (18:30)
--- NOTE | 2016-09-21 18:51 | REP ---
Clinical: Cough and fever . Comparison: None . Technique: PA and lateral. Findings: The mediastinum and cardiac silhouette are normal. The lung hernandez are clear and without acute consolidation, effusion, or pneumothorax. The skeletal structures are intact and normal. Impression: 1. No acute cardiopulmonary process. Signed by Nando Downing MD 09/21/2016 06:42 P
[2016-09-21 18:57] LABS: CALCIUM OXALATE CRYSTALS SMALL
[2016-09-21] MEDS ORDERED: PYRI200T5 PO (19:56)
[2016-09-21] MEDS ORDERED: ALBU17IN INH (19:58)
[2016-09-21 20:21] VITALS: BP 128/80
== END 2016-09-21 20:25 | disposition home or self-care (01) ==
LOC: M ED 18:49
DX: J06.9 Acute upper respiratory infection, unspecified (principal); R30.0 Dysuria

== ENCOUNTER → 2016-11-15 | Outpatient (CLI) | payer MEDICAID ==
[~2016-11-15] MED LIST changes: +ALBU17IN INH; +IBUP600T26 PO; +PYRI200T5 PO; +TYLE500T78 PO
--- NOTE | 2016-11-15 12:59 | REP ---
Clinical: Nephrolithiasis Comparison: 07/30/2016. 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 The left kidney is normal in appearance and without nephrolithiasis or obvious evidence for duplication. The bladder is collapsed and grossly normal. Liver, spleen, pancreas, gallbladder, and bilateral adrenal glands are normal. The enteric system is without obstruction or acute inflammatory process. Pelvis demonstrates collapsed bladder and age appropriate prostate/seminal vesicles. Presumed solitary lymph node in the right inguinal canal is unchanged. No ascites. No adenopathy. No free air. Abdominal aorta without aneurysm. Musculoskeletal structures are intact. Lung bases are clear with few scattered calcified granulomata. Impression: 1. 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 Normal left kidney without nephrolithiasis or duplication. 2. Presumed solitary prominent lymph node in the right inguinal canal. Signed by Nando Downing MD 11/15/2016 12:50 P
== END ==
LOC: M RAD 12:17
PROVIDERS: ATTEND Physician Assistant Medical
DX: N20.0 Calculus of kidney (principal)

== ENCOUNTER → 2016-11-15 | Outpatient (REF) | payer SELFPAY | LOC: M SFHCPLAZ 12:55 | PROVIDERS: ATTEND Physician Assistant Medical | DX: R10.9 Unspecified abdominal pain (principal) ==

== ENCOUNTER → 2017-04-04 | Outpatient (REF) | payer OTHER, MEDICAID ==
[~2017-04-04] MED LIST changes: +IBUP-1022 PO; -IBUP600T26 PO; +PYRI1TAB5 PO; -PYRI200T5 PO
[2017-04-04 13:54] LABS: BASO % 0.5 % (0.0-1.0); EOS # 0.2 10^3/uL (0.0-0.50); EOS % 2.6 % (0.0-3.0); IMMATURE GRANULOCYTE % 0.1 % (0-0); LYMPH # 2.2 10^3/uL (1.5-6.5); LYMPH % 29.3 % (24.0-44.0); MEAN CORPUSCULAR HEMOGLOBIN 29.7 pg (27.0-33.0); MEAN CORPUSCULAR HGB CONC 34.3 g/dl (32.0-36.5); MEAN CORPUSCULAR VOLUME 86.4 fl (80.0-96.0); MONO # 0.6 10^3/uL (0.0-0.8); MONO % 8.2 % (0.0-5.0); NEUTROPHILS # 4.5 10^3/uL (1.8-7.7); NEUTROPHILS % 59.3 % (36.0-66.0); PLATELET COUNT, AUTOMATED 289 10^3/uL (150-450); RED CELL DISTRIBUTION WIDTH 12.8 % (11.5-14.5); WHITE BLOOD COUNT 7.6 10^3/uL (4.0-10.0)
[2017-04-04 15:08] LABS: ANION GAP 6 MEQ/L (8-16); BLOOD UREA NITROGEN 10 MG/DL (7-18); CALCIUM LEVEL 8.7 MG/DL (8.5-10.1); CARBON DIOXIDE LEVEL 31 MEQ/L (21-32); CHLORIDE LEVEL 105 MEQ/L (98-107); CREATININE FOR GFR 0.66 MG/DL (0.70-1.30); FERRITIN 124 NG/ML (26-388); GLOMERULAR FILTRATION RATE > 60.0 (>60); GLUCOSE, FASTING 103 MG/DL (70-105); PERCENT SATURATION 35.6 % (19.7-50.0); POTASSIUM SERUM 4.2 MEQ/L (3.5-5.1); SODIUM LEVEL 142 MEQ/L (136-145); TOTAL IRON BINDING CAPACITY 312 UG/DL (250-450)
== END ==
LOC: M SFHCPLAZ 11:07
PROVIDERS: ATTEND Physician Assistant Medical
DX: R59.1 Generalized enlarged lymph nodes (principal); R71.8 Other abnormality of red blood cells

== ENCOUNTER → 2017-05-12 | Outpatient (REF) | payer MEDICAID | LOC: M SFHCPLAZ 11:29 | PROVIDERS: ATTEND Nurse Practitioner Family | DX: A08.4 Viral intestinal infection, unspecified (principal); Z53.9 Procedure and treatment not carried out, unspecified reason ==

== ENCOUNTER → 2017-06-27 | Outpatient (REF) | payer MEDICAID, OTHER ==
[2017-06-27 14:05] LABS: PROGRESSIVE MOTILITY (a) 51 % (>=32)
[2017-06-27 14:06] LABS: % NORMAL FORMS 12 % (>=4); IMMOTILITY 38 %; NON PROGRESSIVE MOTILITY (c) 11 %; TOTAL FUNCTIONAL 7.2 M/Ejac.; TOTAL MOTILITY 62 % (>=40); TOTAL PROGRESSIVE SPERM 27.3 M/Ejac.
== END ==
LOC: M LAB REF 13:32
DX: N46.9 Male infertility, unspecified (principal)
CPT/HCPCS: 89320

== ENCOUNTER 2017-07-04 13:31 | Emergency (ER) | payer MEDICAID ==
[2017-07-04 15:13] LABS: BASO # 0.1 10^3/uL (0.0-0.2); BASO % 0.6 % (0.0-1.0); EOS # 0.2 10^3/uL (0.0-0.50); EOS % 2.6 % (0.0-3.0); HEMATOCRIT 47.5 % (42.0-52.0); HEMOGLOBIN 16.4 g/dl (14.0-18.0); IMMATURE GRANULOCYTE % 0.3 % (0-0); LYMPH # 2.8 10^3/uL (1.5-6.5); LYMPH % 36.6 % (24.0-44.0); MEAN CORPUSCULAR HEMOGLOBIN 29.3 pg (27.0-33.0); MEAN CORPUSCULAR HGB CONC 34.5 g/dl (32.0-36.5); MONO # 0.7 10^3/uL (0.0-0.8); MONO % 8.5 % (0.0-5.0); NEUTROPHILS % 51.4 % (36.0-66.0); PLATELET COUNT, AUTOMATED 351 10^3/uL (150-450); RED BLOOD COUNT 5.59 10^6/uL (4.30-6.10); RED CELL DISTRIBUTION WIDTH 12.4 % (11.5-14.5); WHITE BLOOD COUNT 7.7 10^3/uL (4.0-10.0)
[2017-07-04] MEDS: MAGIC MOUTHWASH SUSPENSION BTL SS (15:37)
[2017-07-04 15:46] LABS: ANION GAP 5 MEQ/L (8-16); BLOOD UREA NITROGEN 12 MG/DL (7-18); CALCIUM LEVEL 9.2 MG/DL (8.5-10.1); CARBON DIOXIDE LEVEL 33 MEQ/L (21-32); CHLORIDE LEVEL 101 MEQ/L (98-107); CREATININE FOR GFR 0.79 MG/DL (0.70-1.30); FREE T4 0.79 NG/DL (0.76-1.46); GLOMERULAR FILTRATION RATE > 60.0 (>60); GLUCOSE, FASTING 87 MG/DL (70-105); POTASSIUM SERUM 3.6 MEQ/L (3.5-5.1); SODIUM LEVEL 139 MEQ/L (136-145)
[2017-07-04] MEDS ORDERED: ISOVUE-370 76% 100ML VIAL (Q9967) As Ordered (15:53)
== END 2017-07-04 16:53 | disposition home or self-care (01) ==
LOC: M ED 13:31
DX: J04.0 Acute laryngitis (principal); J45.909 Unspecified asthma, uncomplicated; F41.9 Anxiety disorder, unspecified; F33.9 Major depressive disorder, recurrent, unspecified; Z79.899 Other long term (current) drug therapy; Z88.5 Allergy status to narcotic agent; Z88.8 Allergy status to other drugs, medicaments and biological substances; Z87.891 Personal history of nicotine dependence; Z80.8 Family history of malignant neoplasm of other organs or systems
CPT/HCPCS: Q9967

== ENCOUNTER → 2017-07-11 | Outpatient (REF) | payer MEDICAID | LOC: M SFHCPLAZ 12:48 | DX: R30.0 Dysuria (principal) ==

== ENCOUNTER 2017-08-24 00:53 | Emergency (ER) | payer MEDICAID ==
[2017-08-24] MEDS: NS 1,000 ML IV (02:00)
[2017-08-24] MEDS: KETOROLAC 30 MG/ML VIAL (J1885) IV (02:00)
[2017-08-24] MEDS: TAMSULOSIN 0.4 MG CAP PO (02:00)
[2017-08-24 02:21] LABS: BASO # 0.1 10^3/uL (0.0-0.2); BASO % 0.8 % (0.0-1.0); EOS # 0.2 10^3/uL (0.0-0.50); EOS % 2.3 % (0.0-3.0); HEMATOCRIT 44.4 % (42.0-52.0); HEMOGLOBIN 15.6 g/dl (14.0-18.0); IMMATURE GRANULOCYTE % 0.3 % (0-3.0); LYMPH # 3.5 10^3/uL (1.5-6.5); LYMPH % 37.1 % (24.0-44.0); MEAN CORPUSCULAR HEMOGLOBIN 29.6 pg (27.0-33.0); MEAN CORPUSCULAR HGB CONC 35.1 g/dl (32.0-36.5); MEAN CORPUSCULAR VOLUME 84.3 fl (80.0-96.0); MONO # 0.9 10^3/uL (0.0-0.8); MONO % 10.1 % (0.0-5.0); NEUTROPHILS # 4.6 10^3/uL (1.8-7.7); NEUTROPHILS % 49.4 % (36.0-66.0); PLATELET COUNT, AUTOMATED 295 10^3/uL (150-450); RED BLOOD COUNT 5.27 10^6/uL (4.30-6.10); RED CELL DISTRIBUTION WIDTH 12.6 % (11.5-14.5); WHITE BLOOD COUNT 9.3 10^3/uL (4.0-10.0)
[2017-08-24 02:42] LABS: APPEARANCE, URINE CLEAR (CLEAR); BACTERIA, URINE AUTO NEGATIVE (NEGATIVE); BILIRUBIN, URINE AUTO NEGATIVE (NEGATIVE); BLOOD, URINE BLOOD 1+ (NEGATIVE); COLOR, URINE YELLOW (YELLOW); GLUCOSE, URINE (UA) AUTO NEGATIVE (NEGATIVE); KETONE, URINE AUTO NEGATIVE (NEGATIVE); LEUKOCYTE ESTERASE, URINE AUTO NEGATIVE (NEGATIVE); MUCUS, URINE SMALL (NEGATIVE); NITRITE, URINE AUTO NEGATIVE (NEGATIVE); PROTEIN, URINE AUTO NEGATIVE (NEGATIVE); RBC, URINE AUTO 11 /HPF (0-3); SPECIFIC GRAVITY URINE AUTO 1.028 (1.002-1.035); SQUAMOUS EPITHELIAL CELL UR AU 0 /HPF (0-6); WBC, URINE AUTO 0 /HPF (0-3)
[2017-08-24 02:49] LABS: ALBUMIN/GLOBULIN RATIO 1.08 (1.00-1.93); ALKALINE PHOSPHATASE 101 U/L (45-117); ANION GAP 8 MEQ/L (8-16); AST/SGOT 33 U/L (7-37); BILIRUBIN,DIRECT < 0.1 MG/DL (0.0-0.2); BILIRUBIN,TOTAL 0.4 MG/DL (0.2-1.0); BLOOD UREA NITROGEN 11 MG/DL (7-18); CALCIUM LEVEL 8.9 MG/DL (8.5-10.1); CARBON DIOXIDE LEVEL 29 MEQ/L (21-32); CHLORIDE LEVEL 105 MEQ/L (98-107); CREATININE FOR GFR 0.76 MG/DL (0.70-1.30); GLOMERULAR FILTRATION RATE > 60.0 (>60); GLUCOSE, FASTING 110 MG/DL (70-100); LIPASE 150 U/L (73-393); POTASSIUM SERUM 4.3 MEQ/L (3.5-5.1); SODIUM LEVEL 142 MEQ/L (136-145); TOTAL PROTEIN 7.7 GM/DL (6.4-8.2)
[2017-08-24 02:57] LABS: ALT/SGPT 32 U/L (12-78)
== END 2017-08-24 04:06 | disposition home or self-care (01) ==
LOC: M ED 00:53
DX: N20.1 Calculus of ureter (principal); F41.9 Anxiety disorder, unspecified; F32.9 Major depressive disorder, single episode, unspecified; Z87.442 Personal history of urinary calculi; Z87.891 Personal history of nicotine dependence; Z88.5 Allergy status to narcotic agent; Z88.8 Allergy status to other drugs, medicaments and biological substances; Z79.899 Other long term (current) drug therapy
CPT/HCPCS: J1885

== ENCOUNTER → 2017-09-04 | Outpatient (REF) | payer MEDICAID | LOC: M SFHCPLAZ 16:08 | DX: N20.0 Calculus of kidney (principal) ==

== ENCOUNTER → 2017-09-05 | Outpatient (REF) | payer MEDICAID ==
[2017-09-05 18:04] LABS: ALBUMIN/GLOBULIN RATIO 1.25 (1.00-1.93); ALKALINE PHOSPHATASE 99 U/L (45-117); ALT/SGPT 27 U/L (12-78); ANION GAP 7 MEQ/L (8-16); AST/SGOT 20 U/L (7-37); BILIRUBIN,TOTAL 0.3 MG/DL (0.2-1.0); BLOOD UREA NITROGEN 12 MG/DL (7-18); CALCIUM LEVEL 8.4 MG/DL (8.5-10.1); CARBON DIOXIDE LEVEL 30 MEQ/L (21-32); CHLORIDE LEVEL 105 MEQ/L (98-107); CREATININE FOR GFR 0.77 MG/DL (0.70-1.30); GLOMERULAR FILTRATION RATE > 60.0 (>60); GLUCOSE, FASTING 91 MG/DL (70-100); POTASSIUM SERUM 3.6 MEQ/L (3.5-5.1); SODIUM LEVEL 142 MEQ/L (136-145); TOTAL PROTEIN 7.2 GM/DL (6.4-8.2)
== END ==
LOC: M SFHCPLAZ 15:01
DX: K21.9 Gastro-esophageal reflux disease without esophagitis (principal); N20.0 Calculus of kidney

== ENCOUNTER → 2018-01-08 | Outpatient (REF) | payer MEDICAID ==
[2018-01-08 18:13] LABS: ALBUMIN 4.5 GM/DL (3.2-5.2); ALBUMIN/GLOBULIN RATIO 1.15 (1.00-1.93); ALKALINE PHOSPHATASE 97 U/L (45-117); ALT/SGPT 26 U/L (12-78); ANION GAP 13 MEQ/L (8-16); AST/SGOT 18 U/L (7-37); BILIRUBIN,TOTAL 0.6 MG/DL (0.2-1.0); BLOOD UREA NITROGEN 14 MG/DL (7-18); CALCIUM LEVEL 9.5 MG/DL (8.5-10.1); CARBON DIOXIDE LEVEL 24 MEQ/L (21-32); CHLORIDE LEVEL 102 MEQ/L (98-107); CREATININE FOR GFR 0.71 MG/DL (0.70-1.30); FREE T4 0.91 NG/DL (0.76-1.46); GLOMERULAR FILTRATION RATE > 60.0 (>60); GLUCOSE, FASTING 72 MG/DL (70-100); POTASSIUM SERUM 4.1 MEQ/L (3.5-5.1); SODIUM LEVEL 139 MEQ/L (136-145); TOTAL PROTEIN 8.4 GM/DL (6.4-8.2)
== END ==
LOC: M SFHCPLAZ 16:01
DX: Z87.442 Personal history of urinary calculi (principal); R63.4 Abnormal weight loss

== ENCOUNTER 2018-04-27 18:03 | Emergency (ER) | payer MEDICAID, OTHER ==
[2018-04-27] MEDS: ACETAMINOPHEN 325 MG TAB PO ×2 (19:22)
[2018-04-27 19:40] LABS: BASO # 0.1 10^3/uL (0.0-0.2); BASO % 0.9 % (0.0-1.0); EOS # 0.3 10^3/uL (0.0-0.50); EOS % 3.4 % (0.0-3.0); HEMATOCRIT 45.2 % (42.0-52.0); HEMOGLOBIN 15.5 g/dl (13.5-17.5); IMMATURE GRANULOCYTE % 0.2 % (0-3.0); LYMPH # 2.8 10^3/uL (1.5-6.5); LYMPH % 31.2 % (24.0-44.0); MEAN CORPUSCULAR HEMOGLOBIN 29.8 pg (27.0-33.0); MEAN CORPUSCULAR HGB CONC 34.3 g/dl (32.0-36.5); MEAN CORPUSCULAR VOLUME 86.9 fl (80.0-96.0); MONO # 0.6 10^3/uL (0.0-0.8); MONO % 6.6 % (0.0-5.0); NEUTROPHILS # 5.2 10^3/uL (1.8-7.7); NEUTROPHILS % 57.7 % (36.0-66.0); PLATELET COUNT, AUTOMATED 277 10^3/uL (150-450); RED CELL DISTRIBUTION WIDTH 12.6 % (11.5-14.5)
[2018-04-27 20:09] LABS: ALBUMIN 4.3 GM/DL (3.2-5.2); ALKALINE PHOSPHATASE 85 U/L (45-117); ALT/SGPT 21 U/L (12-78); ANION GAP 3 MEQ/L (8-16); AST/SGOT 14 U/L (7-37); BILIRUBIN,DIRECT < 0.1 MG/DL (0.0-0.2); BILIRUBIN,TOTAL 0.3 MG/DL (0.2-1.0); BLOOD UREA NITROGEN 11 MG/DL (7-18); C REACTIVE PROTEIN QUANTITATIV < 0.30 MG/DL (0.00-0.30); CALCIUM LEVEL 9.1 MG/DL (8.5-10.1); CARBON DIOXIDE LEVEL 31 MEQ/L (21-32); CHLORIDE LEVEL 104 MEQ/L (98-107); CK-MB VALUE MASS < 1.0 NG/ML (<3.6); CPK CREATINE PHOSPHOKINASE 46 U/L (39-308); FREE T4 0.85 NG/DL (0.76-1.46); GLOMERULAR FILTRATION RATE > 60.0 (>60); GLUCOSE, FASTING 94 MG/DL (70-100); LIPASE 121 U/L (73-393); MB/CK RELATIVE INDEX 2.17 (< OR =4); POTASSIUM SERUM 3.5 MEQ/L (3.5-5.1); SODIUM LEVEL 138 MEQ/L (136-145); TOTAL PROTEIN 8.2 GM/DL (6.4-8.2); TROPONIN I < 0.02 NG/ML (< 0.10)
== END 2018-04-27 21:19 | disposition home or self-care (01) ==
LOC: M ED 18:03
DX: E03.9 Hypothyroidism, unspecified (principal); R07.89 Other chest pain; I45.10 Unspecified right bundle-branch block; R42 Dizziness and giddiness; F32.9 Major depressive disorder, single episode, unspecified; Z87.442 Personal history of urinary calculi; F12.10 Cannabis abuse, uncomplicated; Z79.899 Other long term (current) drug therapy; Z88.1 Allergy status to other antibiotic agents; Z88.5 Allergy status to narcotic agent; Z88.8 Allergy status to other drugs, medicaments and biological substances
CPT/HCPCS: 71046

== ENCOUNTER 2018-05-03 10:19 | Emergency (ER) | payer SELFPAY, MEDICAID | END 2018-05-03 11:15 | disposition home or self-care (01) | LOC: M ED 10:19 | DX: R07.0 Pain in throat (principal); G89.29 Other chronic pain; R07.89 Other chest pain; Z80.0 Family history of malignant neoplasm of digestive organs; F99 Mental disorder, not otherwise specified; Z88.5 Allergy status to narcotic agent; Z88.8 Allergy status to other drugs, medicaments and biological substances; Z79.2 Long term (current) use of antibiotics; Z79.899 Other long term (current) drug therapy | CPT/HCPCS: 93005 ==

== ENCOUNTER → 2018-06-02 | Outpatient (REF) | payer MEDICAID ==
[2018-06-02 16:47] LABS: FREE T4 0.81 NG/DL (0.76-1.46)
[2018-06-02 17:11] LABS: ESTIMATED AVERAGE GLUCOSE 105 MG/DL (60-110); HEMOGLOBIN A1c 5.3 %
== END ==
LOC: M SFHCPLAZ 14:18
DX: E16.2 Hypoglycemia, unspecified (principal); E03.9 Hypothyroidism, unspecified
CPT/HCPCS: 84443

== ENCOUNTER → 2018-08-07 | Outpatient (REF) | payer MEDICAID, SELFPAY ==
[~2018-08-07] MED LIST changes: +AMOX875T PO; +CLEO300C2 PO; +LANS30CA PO; +LORA-243 PO; +NAPR-50 PO; +OMEP20CA3 PO; +OMEP40CA2 PO; +ZOFR4TAB14 PO; -ZOFR4TAB3 PO
[2018-08-07 17:21] LABS: BASO # 0.1 10^3/uL (0.0-0.2); BASO % 0.8 % (0.0-1.0); EOS # 0.4 10^3/uL (0.0-0.50); EOS % 4.6 % (0.0-3.0); HEMATOCRIT 44.5 % (42.0-52.0); HEMOGLOBIN 15.2 g/dl (13.5-17.5); LYMPH # 2.5 10^3/uL (1.5-4.5); LYMPH % 28.7 % (24.0-44.0); MEAN CORPUSCULAR HEMOGLOBIN 29.6 pg (27.0-33.0); MEAN CORPUSCULAR HGB CONC 34.2 g/dl (32.0-36.5); MEAN CORPUSCULAR VOLUME 86.6 fl (80.0-96.0); MONO # 0.5 10^3/uL (0.0-0.8); MONO % 6.1 % (0.0-5.0); NEUTROPHILS # 5.2 10^3/uL (1.8-7.7); NEUTROPHILS % 59.3 % (36.0-66.0); PLATELET COUNT, AUTOMATED 235 10^3/uL (150-450); RED BLOOD COUNT 5.14 10^6/uL (4.30-6.10); WHITE BLOOD COUNT 8.7 10^3/uL (4.0-10.0)
[2018-08-07 17:36] LABS: PLATELET CLUMPS SMALL AMT; PLATELET ESTIMATE NORMAL (NORMAL)
[2018-08-07 17:42] LABS: FREE T4 0.95 NG/DL (0.76-1.46); THYROID STIMULATING HORMONE 0.958 uIU/ML (0.358-3.740)
[2018-08-11 01:34] LABS: H PYLORI SERUM QUANT IGA <9.0 units (0.0-8.9); TESTOSTERONE FREE (DIRECT) 4.4 pg/mL (8.7-25.1)
== END ==
LOC: M SFHCPLAZ 15:55
PROVIDERS: ATTEND Physician Assistant Medical
DX: E03.9 Hypothyroidism, unspecified (principal); E29.1 Testicular hypofunction; K21.9 Gastro-esophageal reflux disease without esophagitis

== ENCOUNTER → 2018-10-30 | Outpatient (REF) | payer OTHER ==
[~2018-10-30] MED LIST changes: -NAPR-50 PO; +NAPR-837 PO
== END ==
LOC: M SFHCPLAZ 15:39
PROVIDERS: ATTEND Physician Assistant Medical
DX: R10.9 Unspecified abdominal pain (principal)

== ENCOUNTER → 2019-09-03 | Outpatient (REF) | payer OTHER ==
[~2019-09-03] MED LIST changes: +OMEP1CAP73 PO; -OMEP20CA3 PO; -OMEP40CA2 PO; +OMEP40CA97 PO
== END ==
LOC: M LAB REF 11:45
PROVIDERS: ATTEND Physician Assistant Medical
DX: J02.9 Acute pharyngitis, unspecified (principal)

== ENCOUNTER → 2019-10-14 | Outpatient (REF) | payer MEDICAID, OTHER, SELFPAY ==
[2019-10-14 16:25] LABS: THYROID STIMULATING HORMONE 1.98 uIU/ML (0.358-3.740)
== END ==
LOC: M SFHCPLAZ 13:53
PROVIDERS: ATTEND Physician Assistant Medical
DX: E03.9 Hypothyroidism, unspecified (principal)

== ENCOUNTER → 2019-12-01 | Outpatient (CLI) | payer OTHER | LOC: M LABSMTC 12:05 | PROVIDERS: ATTEND Family Medicine | DX: Z11.59 Encounter for screening for other viral diseases (principal) | CPT/HCPCS: C9803; U0003 ==

== ENCOUNTER 2020-03-10 16:06 | Emergency (ER) | payer OTHER ==
[~2020-03-10] VITALS: Ht 185.4 cm; Wt 80.3 kg
[2020-03-10 17:38] VITALS: BP 122/78
== END 2020-03-10 17:42 | disposition home or self-care (01) ==
LOC: M ED 16:06
DX: Z20.828 Contact with and (suspected) exposure to other viral communicable diseases (principal); Z79.899 Other long term (current) drug therapy; Z88.8 Allergy status to other drugs, medicaments and biological substances; Z88.1 Allergy status to other antibiotic agents
CPT/HCPCS: 99283; U0003

== ENCOUNTER → 2020-03-15 | Outpatient (CLI) | payer OTHER | LOC: M LABSMTC 12:45 | PROVIDERS: ATTEND Family Medicine | DX: Z20.828 Contact with and (suspected) exposure to other viral communicable diseases (principal) ==

== ENCOUNTER → 2020-04-13 | Outpatient (CLI) | payer OTHER | LOC: M LABSMTC 14:14 | PROVIDERS: ATTEND Family Medicine | DX: Z20.828 Contact with and (suspected) exposure to other viral communicable diseases (principal) | CPT/HCPCS: C9803; U0003 ==

== ENCOUNTER 2021-04-26 07:25 | Emergency (ER) | payer OTHER ==
[~2021-04-26] VITALS: Ht 188 cm; Wt 80.1 kg
[~2021-04-26 07:25] MED LIST changes: +OMEP40CA4 PO; -OMEP40CA97 PO
[2021-04-26 07:26] VITALS: BP 126/82
[2021-04-26] MEDS ORDERED: LEVO50TA5 (07:33)
--- OUTSIDE RECORDS SUMMARY | 2021-04-26 07:35 | CCD ---
Author Author [facility] Organization [facility] Address Unknown Phone Unavailable Support Name Relationship Address Phone CAR FRESHNER TAL Next Of Kin [address] [address] [place] [address] CARFRESH Next Of Kin [address] [place] [address] CAR FRESHNER TAL. Next Of Kin [address] [place] [address] SANTIAGO PRESSLEY Next Of Kin [address] [place] [address] N[place] [address] [place] [address] Juan Daniel MALDONADO JIM Next Of Kin [address] [place] [address] BERYLSOPHIA Next Of Kin [address] [place] [address] NICE [place] [address] Unavailable [employer] [place] [address] KASANDRA MALDONADO Next Of Kin [address] [place] [id number] [place] [address] Unavailable Re-disclosure Warning The records that you are about to access may contain information from federally-assisted alcohol or drug abuse programs. If such information is present, then the following federally mandated warning applies: This information has been disclosed to you from records protected by federal confidentiality rules (42 CFR part 2). The federal rules prohibit you from making any further disclosure of this information unless further disclosure is expressly permitted by the written consent of the person to whom it pertains or as otherwise permitted by 42 CFR part 2. A general authorization for the release of medical or other information is NOT sufficient for this purpose. The Federal rules restrict any use of the information to criminally investigate or prosecute any alcohol or drug abuse patient.The records that you are about to access may contain highly sensitive health information, the redisclosure of which is protected by Article 27-F of the [facility] Public Health law. If you continue you may have access to information: Regarding HIV / AIDS; Provided by facilities licensed or operated by the [facility] Office of Mental Health; or Provided by the [facility] Office for People With Developmental Disabilities. If such information is present, then the following [facility] mandated warning applies: This information has been disclosed to you from confidential records which are protected by state law. State law prohibits you from making any further disclosure of this information without the specific written consent of the person to whom it pertains, or as otherwise permitted by law. Any unauthorized further disclosure in violation of state law may result in a fine or skilled nursing sentence or both. A general authorization for the release of medical or other information is NOT sufficient authorization for further disc losure. Encounters Encounter Providers Location Date Indications Data Source(s ) Unknown [address] [facility] [address] [address] 03/08/2021 12:00:00 AM EDT eCW1 ([facility]) Unknown [address] [facility] [address] [address] 07/25/2020 12:00:00 AM EST eCW1 ([facility]) Unknown [address] [facility] [address] [place] [address] 04/12/2020 12:00:00 AM EDT eCW1 ([facility]) Immunizations Vaccine Date Status Description Data Source(s) COVID-19 VACCINE Moderna 03/25/2021 12:00:00 AM EDT completed [facility] Vaccine Series Complete: YESThis Data wa s Submitted to [facility] Via [facility]. Moderna #1 dose COVID-19 SARSCOV2 VAC 100MCG/0.5ML IM 02/25/2021 01:45:00 PM EDT completed eCW1 ([facility]) COVID-19 VACCINE Moderna 02/25/2021 12:00:00 AM EDT completed [facility] Vaccine Series Complete: NOThis Data was Submitted to [facility] Via [facility]. Medications Medication Brand Name Start Date Product Form Dose Route Admi nistrative Instructions Pharmacy Instructions Status Indications Reaction Description Data Source(s) 50 mcg 03/08/2021 12:00:00 AM EDT tablet 30 TAKE ONE TABLET BY MOUTH EVERY MORNING ON AN EMPTY STOMACH TAKE ONE TABLET BY MOUTH EVERY MORNING O N AN EMPTY STOMACH SOLD: 04/07/2021 [facility] 50 mcg 03/08/2021 12:00:00 AM EDT tablet 30 TAKE ONE TABLET BY MOUTH EVERY MORNING ON AN EMPTY STOMACH TAKE ONE TABLET BY MOUTH EVERY MORNING O N AN EMPTY STOMACH SOLD: 03/08/2021 [facility] 50 mcg 03/14/2020 12:00:00 AM EDT tablet 90 TAKE ONE TABLET BY MOUTH EVERY DAY TAKE ONE TABLET BY MOUTH EVERY DAY SOLD: 03/14/2020 [facility] 50 mcg 03/14/2020 12:00:00 AM EDT tablet 90 TAKE ONE TABLET BY MOUTH EVERY DAY TAKE ONE TABLET BY MOUTH EVERY DAY SOLD: 09/09/2020 [facility] 50 mcg 03/14/2020 12:00:00 AM EDT tablet 90 TAKE ONE TABLET BY MOUTH EVERY DAY TAKE ONE TABLET BY MOUTH EVERY DAY SOLD: 06/12/2020 [facility] 50 mcg 03/14/2020 12:00:00 AM EDT tablet 90 TAKE ONE TABLET BY MOUTH EVERY DAY TAKE ONE TABLET BY MOUTH EVERY DAY SOLD: 12/08/2020 [facility] Insurance Providers Payer name Policy type / Coverage type Policy ID Covered alliance party ID Covered alliance party's relationship to brian Policy Brian Plan Information MEDICAID [id number] SP [id number] MEDICAID [id number] SP [id number] MEDICAID [id number] SP [id number] SELF PAY ONLY [id number] SP [id number] SELF PAY ONLY [id number] ANSI-Not a Secondary Insurance [id number] ANSI-Not a Secondary Insurance [id number] ANSI-Medicaid [id number] ANSI-Commercial [id number] ANSI-Medicaid [id number] ANSI-Commercial [id number] ANSI-Commercial [id number] ANSI-Medicaid [id number] ANSI-Not a Secondary Insurance [id number] ANSI-Medicaid [id number] ANSI-Commercial [id number] ANSI-Not a Secondary Insurance [id number] ANSI-Medicaid [id number] ANSI-Medicaid [id number] ANSI-Not a Secondary Insurance [id number] ANSI-Not a Secondary Insurance [id number] ANSI-Commercial [id number]-[id number] ANSI-Medicaid [id number] ANSI-Not a Secondary Insurance [id number] ANSI-Medicaid [id number] ANSI-Not a Secondary Insurance [id number] ANSI-Commercial [id number] ANSI-Medicaid [id number] ANSI-Medicaid [id number] ANSI-Not a Secondary Insurance [id number] ANSI-Not a Secondary Insurance [id number] ANSI-Commercial [id number]-[id number]-[id number] ANSI-Not a Secondary Insurance [id number] 6m089vj [id number]-[id number]-[id number] ANSI-Not a Secondary Insurance [id number] ANSI-Medicaid [id number] ANSI-Commercial [id number]-[id number]-33zf-d60f-[id number] [id number]-01dc-b64o-[id number] ANSI-Medicaid [id number] ANSI-Not a Secondary Insurance [id number] [id number]-[id number] ANSI-Commercial [id number]-5c05-24wf-[id number] ANSI-Medicaid [id number] ANSI-Not a Secondary Insurance [id number] ANSI-Medicaid [id number] ANSI-Not a Secondary Insurance [id number] ANSI-Commercial [id number]-[id number]-[id number] 6189mq5p-tafq-1868-[id number] ANSI-Medicaid [id number] ANSI-Medicaid [id number] ANSI-Not a Secondary Insurance [id number]-[id number] ANSI-Not a Secondary Insurance [id number]-0s7e-[id number] ANSI-Medicaid [id number] ANSI-Medicaid [id number] ANSI-Commercial [id number] MEDICAID M [id number] S [id number] LIFETIME BENEFIT SOLUTIO O [id number] S [id number] ANSI-Not a Secondary Insurance [id number] [id number] ANSI-Commercial [id number] ANSI-Medicaid [id number] ANSI-Medicaid [id number] LIFETIME BENEFIT SOLUTIONS [id number] SP [id number] ANSI-Medicaid [id number] ANSI-Not a Secondary Insurance [id number] [id number] ANSI-Commercial [id number]-[id number]-[id number] ANSI-Medicaid [id number] ANSI-Medicaid [id number] ANSI-Commercial [id number]-060o-[id number] ANSI-Not a Secondary Insurance [id number]-g5ff-[id number] [id number]-854k-d2wb-[id number] ANSI-Medicaid [id number] ANSI-Medicaid [id number] ANSI-Medicaid [id number] ANSI-Not a Secondary Insurance [id number]-[id number] ANSI-Commercial [id number]-1h81-2v8f-2b8v-[id number] ANSI-Not a Secondary Insurance [id number] ANSI-Medicaid [id number] ANSI-Medicaid [id number] ANSI-Commercial [id number]-[id number]-[id number] ANSI-Medicaid [id number] ANSI-Medicaid [id number] ANSI-Commercial [id number] ANSI-Not a Secondary Insurance [id number] ANSI-Medicaid [id number] ANSI-Not a Secondary Insurance [id number] ANSI-Medicaid [id number] ANSI-Commercial [id number] ANSI-Medicaid [id number] ANSI-Not a Secondary Insurance [id number] ANSI-Medicaid [id number] ANSI-Commercial [id number]-[id number]-[id number] ANSI-Medicaid [id number] ANSI-Not a Secondary Insurance [id number] zj1szch [id number]-[id number] ANSI-Medicaid [id number] ANSI-Commercial [id number]-[id number]-[id number] [facility] [id number] SELF PAY UNAVAILABLE SP UNAVAILA BLE SELF PAY ONLY - SP1 UNAVAILABLE SP UNAVAILABLE [employer] MCDO [id number] SP [id number] [employer] COMM[employer] PL[facility] [id number] SP [id number] SELF PAY ONLY [id number] SP [id number] [employer] COMM[employer] [id number] SP [id number] LIF[employer]IME BENEFIT SOLUTIONS [id number] SP [id number] [facility]) O [id number] S [id number] [employer] [id number] SP [id number] [facility] [id number] SP [id number] BCBS [facility] 140/640 [id number] MO2 [id number] [facility]MR [facility] [id number] SP [id number] EMEDNY [id number] SP [id number] Problems, Conditions, and Diagnoses No Information Surgeries/Procedures No Information Results ID Date Data Source [id number] 03/28/2021 03:45:00 PM EDT [facility] Name Value Range Interpretation Code Description Data Edith rce(s) Supporting Document(s) SARS-CoV-2 RNA Resp Ql JONI+probe NOT DETECTED [facility] This lab was ordered by NATHANIEL farmer and reported by NATHANIEL Fraga. ID Date Data Source [id number] 07/12/2020 12:00:00 AM EST [facility] Name Value Range Interpretation Code Description Data Edith rce(s) Supporting Document(s) Carestart Rapid COVID Antigen Test Positive [facility] This lab was reported by Carly [facility] Angélica oliver. ID Date Data Source [id number] 04/13/2020 02:05:00 PM EDT [facility] Name Value Range Interpretation Code Description Data Edith rce(s) Supporting Document(s) SARS coronavirus 2 RNA [facility] This lab was ordered by [facility] and reported by [facility]. ID Date Data Source [id number] 03/15/2020 12:00:00 PM EDT [facility] Name Value Range Interpretation Code Description Data Edith rce(s) Supporting Document(s) SARS coronavirus 2 RNA [facility] This lab was ordered by [facility] and reported by [facility]. ID Date Data Source [id number] 03/10/2020 04:48:00 PM EDT [facility] Name Value Range Interpretation Code Description Data Edith rce(s) Supporting Document(s) SARS coronavirus 2 RNA [facility] This lab was ordered by [facility] and reported by [facility]. Procedure Social History No Information
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
[2021-04-26 08:40] LABS: RSV AMPLIFICATION NEGATIVE (NEGATIVE)
--- OUTSIDE RECORDS SUMMARY | 2021-04-26 09:22 | CCD ---
Author Author [facility] Organization [facility] Address Unknown Phone Unavailable Support Name Relationship Address Phone CAR FRESHNER TAL Next Of Kin [address]INA BAJWA [address] [place] [address] CARFRESH Next Of Kin [address] [place] [address] CAR FRESHNER TAL. Next Of Kin [address] [address]ARINA BAJWA [address] [place] [address] SANTIAGO PRESSLEY Next Of Kin [address] [place] [address] [place] [address] [place] [address] Juan Daniel MALDONADO JIM Next Of Kin [address] [place] [address] BERYLSOPHIA Next Of Kin [address] [place] [address] N[place] [address] Unavailable [employer] [address] KASANDRA MALDONADO Next Of Kin [address] [place] [id number] [place] [address] Unavailable Re-disclosure Warning The records that you [...] is protected by Article 27-F of the [facility] Public Health law. If you continue you may have access to information: Regarding HIV / AIDS; Provided by facilities licensed or operated by the [facility] Office of Mental Health; or Provided by the [facility] Office for People With Developmental Disabilities. If such information is present, then the following [facility] mandated warning applies: This information has [...] law may result in a fine or snf sentence or both. A general authorization for the release of medical or other information is NOT sufficient authorization for further disc losure. Encounters Encounter Providers Location Date Indications Data Source(s ) Unknown [address] [facility] [address] [place] [address] 03/08/2021 12:00:00 AM EDT eCW1 ([facility]) Unknown [address] [facility] [place] [address] 07/25/2020 12:00:00 AM EST eCW1 ([facility]) Unknown [address] [facility] [address] [place] [address] 04/12/2020 12:00:00 AM EDT eCW1 ([facility]) Immunizations Vaccine Date Status Description Data Source(s) COVID-19 VACCINE Moderna 03/25/2021 12:00:00 AM EDT completed AZ[facility]IS Vaccine Series Complete: YESThis Data wa s Submitted to [facility] Via [facility]. Moderna #1 dose COVID-19 SARSCOV2 VAC 100MCG/0.5ML IM 02/25/2021 01:45:00 PM EDT completed eCW1 ([facility]) COVID-19 VACCINE Moderna 02/25/2021 12:00:00 AM EDT completed [place] Vaccine Series Complete: NOThis Data was Submitted to [facility] Via [place]. Medications Medication Brand Name Start Date Product [...] type / Coverage type Policy ID Covered republican ID Covered republican's relationship to brian Policy Brian Plan Information MEDICAID [id number] SP [id number] MEDICAID [id number] SP [id number] MEDICAID [id number] SP [id number] SELF PAY ONLY [id number] SP [id number] SELF PAY ONLY [id number] ANSI-Not a Secondary Insurance [id number] ANSI-Not a Secondary Insurance [id number] [id number] ANSI-Medicaid [id number] ANSI-Commercial [id number] ANSI-Medicaid [id number] ANSI-Commercial [id number] ANSI-Commercial [id number] ANSI-Medicaid [id number] ANSI-Not a Secondary Insurance [id number] ANSI-Medicaid [id number] ANSI-Commercial [id number]-[id number] ANSI-Not a Secondary Insurance [id number] ANSI-Medicaid [id number] ANSI-Medicaid [id number] ANSI-Not a Secondary Insurance [id number] ANSI-Not a Secondary Insurance [id number]-[id number] ANSI-Commercial [id number]-[id number]-[id number]-[id number] ANSI-Medicaid [id number] ANSI-Not a Secondary Insurance [id number] ANSI-Medicaid [id number] ANSI-Not a Secondary Insurance [id number] [id number] ANSI-Commercial [id number]-776h-[id number] ANSI-Medicaid [id number] ANSI-Medicaid [id number] ANSI-Not a Secondary Insurance [id number] ANSI-Not a Secondary Insurance [id number] ANSI-Commercial [id number]-vq0m-[id number] ANSI-Not a Secondary Insurance [id number]-5d1i-36h7-2hnm-pe70i [id number] [id number]-91j0-7rty-[id number] ANSI-Not a Secondary Insurance [id number] [id number]-[id number] ANSI-Medicaid [id number] ANSI-Commercial [id number]-845r-98bv-y14n-[id number] [id number]-254o-79mj-p55v-[id number] ANSI-Medicaid [id number] ANSI-Not a Secondary Insurance [id number] [id number]-[id number] ANSI-Commercial [id number]-7k53-32jz-[id number]-[id number] ANSI-Medicaid [id number] ANSI-Not a Secondary Insurance [id number] [id number] [id number]-ac7b-1p88-i03k-084756wxh6u0 ANSI-Medicaid [id number] ANSI-Not a Secondary Insurance [id number] [id number]-[id number] ANSI-Commercial 0964vt1i-mrmi-1154-[id number]-cqau-8338-[id number] ANSI-Medicaid [id number] ANSI-Medicaid [id number] ANSI-Not a Secondary Insurance [id number]-[id number] [id number]-y474-cdx727g2w4n8 ANSI-Not a Secondary Insurance [id number]-8f9y-2d8l-y784-0366q [id number] [id number]-7o1w-[id number] ANSI-Medicaid [id number] ANSI-Medicaid [id number] ANSI-Commercial [id number] MEDICAID M [id number] S [id number] LIFETIME BENEFIT SOLUTIO O [id number] S [id number] ANSI-Not a Secondary Insurance [id number]-r7ywp a0iouqj 90cq99d0-56o3-843p-x143-r6zwlw9nckys ANSI-Commercial [id number] ANSI-Medicaid [id number] ANSI-Medicaid [id number] LIFETIME BENEFIT SOLUTIONS [id number] SP [id number] ANSI-Medicaid [id number] ANSI-Not a Secondary Insurance [id number] [id number]-8577-[id number] ANSI-Commercial [id number]-[id number] ANSI-Medicaid [id number] ANSI-Medicaid [id number] ANSI-Commercial [id number]-[id number]-[id number]-l229-[id number]-131i-98d7-h727-s2q23x1x8uw8 ANSI-Not a Secondary Insurance [id number]-[id number]-y0xr-[id number] [id number]-35vz-362a-i9jz-[id number] ANSI-Medicaid [id number] ANSI-Medicaid [id number] ANSI-Medicaid [id number] ANSI-Not a Secondary Insurance [id number]-[id number] ANSI-Commercial [id number]-4d38-3u3u-8e4v-[id number]-6w40-4g4t-2q6a-[id number] ANSI-Not a Secondary Insurance [id number]-2c6ef [id number] ANSI-Medicaid [id number] ANSI-Medicaid [id number] ANSI-Commercial [id number]-9x7a-[id number]-8g3h-85b1-[id number] ANSI-Medicaid [id number] ANSI-Medicaid [id number] ANSI-Commercial [id number] ANSI-Not a Secondary Insurance [id number]-[id number]-[id number] ANSI-Medicaid [id number] ANSI-Not a Secondary Insurance [id number]-[id number] ANSI-Medicaid [id number] ANSI-Commercial [id number]-[id number]-[id number] ANSI-Medicaid [id number] ANSI-Not a Secondary Insurance [id number] ANSI-Medicaid [id number] ANSI-Commercial [id number]-[id number]-78vj-7ytm-[id number] ANSI-Medicaid [id number] ANSI-Not a Secondary Insurance [id number] rj7ddar [id number]-693a-3nc7-[id number] ANSI-Medicaid [id number] ANSI-Commercial [id number]-[id number]-v4kw-[id number] ON LICENSE OF [facility] COMMUNITY PLAN [facility] [id number] SELF PAY UNAVAILABLE SP UNAVAILA BLE SELF PAY ONLY - SP1 UNAVAILABLE SP UNAVAILABLE UN COMMUNITY PLAN [facility]O [id number] SP [id number] [employer] COMMUNITY PLAN [facility] [id number] SP [id number] SELF PAY ONLY [id number] SP [id number] UN COMMUNITY PLAN [facility] [id number] SP [id number] LIFETIME BENEFIT SOLUTIONS [id number] SP [id number] [facility]) O [id number] S [id number] UN COMMUNITY PLAN [facility] [id number] SP [id number] [facility] PLAN [facility] [id number] SP [id number] BC[facility] [id number] [id number] [id number] UMR [facility] [id number] SP [id number] EMEDNY [id number] SP [id number] Problems, Conditions, and Diagnoses No Information Surgeries/Procedures No Information Results ID Date Data Source [id number] 03/28/2021 03:45:00 PM EDT [facility] Name Value Range Interpretation Code Description Data Edith rce(s) Supporting Document(s) SARS-CoV-2 RNA Resp Ql JONI+probe NOT DETECTED [facility] This lab was ordered by NATHANIEL farmer and reported by NATHANIEL Fraga. ID Date Data Source [id number] 07/12/2020 12:00:00 AM EST [facility] Name Value Range Interpretation Code Description Data Edith rce(s) Supporting Document(s) Carestart Rapid COVID Antigen Test Positive [facility] This lab was reported by C[facility] Angélica oliver. ID Date Data Source [id number] 04/13/2020 02:05:00 PM EDT [facility] Name Value Range Interpretation Code Description Data Edith rce(s) Supporting Document(s) SARS coronavirus 2 RNA [facility] This lab was ordered by [facility] and reported by [facility]. ID Date Data Source [id number] 03/15/2020 12:00:00 PM EDT [facility] Name Value Range Interpretation Code Description Data Edith rce(s) Supporting Document(s) SARS coronavirus 2 RNA [facility] This lab was ordered by [facility] and reported by [facility]. ID Date Data Source [id number] 03/10/2020 04:48:00 PM EDT [facility] Name Value Range Interpretation Code Description Data Edith rce(s) Supporting Document(s) SARS coronavirus 2 RNA [facility] This lab was ordered by [facility] and reported by [facility]. Procedure Social History No Information
== END 2021-04-26 09:10 | disposition left against medical advice (07) ==
LOC: M ED 07:25
DX: Z53.29 Procedure and treatment not carried out because of patient's decision for other reasons (principal)

== ENCOUNTER → 2021-09-14 | Outpatient (REF) | payer OTHER ==
[~2021-09-14] MED LIST changes: +LEVO50TA5
[2021-09-14 13:47] LABS: APPEARANCE, URINE CLEAR (CLEAR); BACTERIA, URINE AUTO NEGATIVE (NEGATIVE); BILIRUBIN, URINE AUTO NEGATIVE (NEGATIVE); BLOOD, URINE BLOOD NEGATIVE (NEGATIVE); COLOR, URINE COLORLESS (YELLOW); GLUCOSE, URINE (UA) AUTO NEGATIVE (NEGATIVE); KETONE, URINE AUTO NEGATIVE (NEGATIVE); LEUKOCYTE ESTERASE, URINE AUTO NEGATIVE (NEGATIVE); NITRITE, URINE AUTO NEGATIVE (NEGATIVE); PROTEIN, URINE AUTO NEGATIVE (NEGATIVE); RBC, URINE AUTO 0 /HPF (0-3); SPECIFIC GRAVITY URINE AUTO 1.003 (1.002-1.035); SQUAMOUS EPITHELIAL CELL UR AU 0 /HPF (0-6); UROBILINOGEN, URINE AUTO 0.2 mg/dL (0.0-2.0); WBC, URINE AUTO 0 /HPF (0-3)
== END ==
LOC: M SFHCPLAZ 12:46
PROVIDERS: ATTEND Physician Assistant Medical
DX: R30.0 Dysuria (principal)

== ENCOUNTER → 2021-09-14 | Outpatient (CLI) | payer OTHER ==
[2021-09-14 10:01] LABS: BASO # 0.1 10^3/uL (0.0-0.2); EOS # 0.2 10^3/uL (0.0-0.5); EOS % 3.4 % (0.0-3.0); HEMATOCRIT 42.9 % (42.0-52.0); HEMOGLOBIN 14.9 g/dl (13.5-17.5); LYMPH # 2.1 10^3/uL (1.5-5.0); LYMPH % 34.8 % (24.0-44.0); MEAN CORPUSCULAR HGB CONC 34.7 g/dl (32.0-36.5); MEAN CORPUSCULAR VOLUME 86.5 fl (80.0-96.0); MONO # 0.6 10^3/uL (0.0-0.8); MONO % 10.5 % (2.0-8.0); NEUTROPHILS # 3.1 10^3/uL (1.5-8.5); PLATELET COUNT, AUTOMATED 303 10^3/uL (150-450); RED BLOOD COUNT 4.96 10^6/uL (4.30-6.10); WHITE BLOOD COUNT 6.1 10^3/uL (4.0-10.0)
[2021-09-14 10:32] LABS: ALBUMIN 4.4 GM/DL (3.2-5.2); ALT/SGPT 22 U/L (12-78); BILIRUBIN,TOTAL 0.6 MG/DL (0.2-1.0); BLOOD UREA NITROGEN 13 MG/DL (7-18); CALCIUM LEVEL 9.6 MG/DL (8.5-10.1); CARBON DIOXIDE LEVEL 32 MEQ/L (21-32); CHLORIDE LEVEL 105 MEQ/L (98-107); CHOLESTEROL LEVEL 177 MG/DL (<200); CHOLESTEROL RISK RATIO 4.657 (<5); CREATININE FOR GFR 0.64 MG/DL (0.70-1.30); FREE T4 1.02 NG/DL (0.76-1.46); GLOMERULAR FILTRATION RATE > 60.0 (>60); GLUCOSE, FASTING 91 MG/DL (70-100); HDL CHOLESTEROL 38 MG/DL (>40); LDL CHOLESTEROL 120 MG/DL (<100); NON-HDL-C 139 MG/DL; POTASSIUM SERUM 5.2 MEQ/L (3.5-5.1); SODIUM LEVEL 139 MEQ/L (136-145); TOTAL PROTEIN 7.8 GM/DL (6.4-8.2); TRIGLYCERIDES LEVEL 96 MG/DL (<150)
== END ==
LOC: M PLALAB 09:01
PROVIDERS: ATTEND Physician Assistant Medical
DX: E78.1 Pure hyperglyceridemia (principal); K21.9 Gastro-esophageal reflux disease without esophagitis; E03.9 Hypothyroidism, unspecified

== ENCOUNTER → 2022-10-28 | Outpatient (CLI) | payer MEDICAID, OTHER ==
[2022-10-28 10:50] LABS: BASO # 0.1 10^3/uL (0.0-0.2); BASO % 0.9 % (0.0-1.0); EOS # 0.3 10^3/uL (0.0-0.5); EOS % 4.6 % (0.0-3.0); HEMATOCRIT 48.6 % (42.0-52.0); HEMOGLOBIN 16.3 g/dl (13.5-17.5); LYMPH % 28.7 % (24.0-44.0); MEAN CORPUSCULAR HEMOGLOBIN 30.4 pg (27.0-33.0); MEAN CORPUSCULAR HGB CONC 33.5 g/dl (32.0-36.5); MEAN CORPUSCULAR VOLUME 90.7 fl (80.0-96.0); MONO # 0.6 10^3/uL (0.0-0.8); MONO % 8.5 % (2.0-8.0); NEUTROPHILS % 56.9 % (36.0-66.0); PLATELET COUNT, AUTOMATED 272 10^3/uL (150-450); RED BLOOD COUNT 5.36 10^6/uL (4.30-6.10)
[2022-10-28 11:04] LABS: ALBUMIN 4.3 G/DL (3.2-5.2); ALKALINE PHOSPHATASE 82 U/L (46-116); ALT/SGPT 15 U/L (7.0-40); AST/SGOT 18 U/L (<34); BILIRUBIN,TOTAL 0.6 MG/DL (0.3-1.2); BLOOD UREA NITROGEN 13 MG/DL (9-23); CALCIUM LEVEL 9.4 MG/DL (8.5-10.1); CARBON DIOXIDE LEVEL 30 MMOL/L (20-31); CHLORIDE LEVEL 102 MMOL/L (98-107); CHOLESTEROL LEVEL 186 MG/DL (<200); CHOLESTEROL RISK RATIO 4.54 (<5); CREATININE FOR GFR 0.75 MG/DL (0.70-1.30); FREE T4 1.14 NG/DL (0.89-1.76); GLOMERULAR FILTRATION RATE > 60.0 (>60); GLUCOSE, FASTING 88 MG/DL (60-100); HDL CHOLESTEROL 40.9 MG/DL (>40); LDL CHOLESTEROL 124.7 MG/DL (<100); NON-HDL-C 145.1 MG/DL; POTASSIUM SERUM 4.9 MMOL/L (3.5-5.1); SODIUM LEVEL 138 MMOL/L (136-145); THYROID STIMULATING HORMONE 1.011 uIU/ML (0.55-4.78); TOTAL PROTEIN 7.8 G/DL (5.7-8.2); TRIGLYCERIDES LEVEL 102 MG/DL (<150)
[2022-10-29 19:07] LABS: TESTOSTERONE FREE (DIRECT) 12.3 pg/mL (8.7-25.1)
== END ==
LOC: M PLALAB 08:11
PROVIDERS: ATTEND Physician Assistant Medical
DX: E03.9 Hypothyroidism, unspecified (principal); E29.1 Testicular hypofunction; E78.1 Pure hyperglyceridemia; K21.9 Gastro-esophageal reflux disease without esophagitis

== ENCOUNTER → 2023-08-08 | Outpatient (CLI) | payer OTHER, SELFPAY ==
[2023-08-08 14:36] LABS: BASO # 0.1 10^3/uL (0.0-0.2); BASO % 1.1 % (0.0-1.0); EOS # 0.1 10^3/uL (0.0-0.5); EOS % 2.7 % (0.0-3.0); HEMATOCRIT 45.3 % (42.0-52.0); HEMOGLOBIN 15.5 g/dl (13.5-17.5); LYMPH # 1.9 10^3/uL (1.5-5.0); LYMPH % 40.8 % (24.0-44.0); MEAN CORPUSCULAR HEMOGLOBIN 31.1 pg (27.0-33.0); MEAN CORPUSCULAR HGB CONC 34.2 g/dl (32.0-36.5); MONO # 0.5 10^3/uL (0.0-0.8); MONO % 10.3 % (2.0-8.0); NEUTROPHILS # 2.1 10^3/uL (1.5-8.5); NEUTROPHILS % 44.3 % (36.0-66.0); PLATELET COUNT, AUTOMATED 259 10^3/uL (150-450); RED BLOOD COUNT 4.98 10^6/uL (4.30-6.10); WHITE BLOOD COUNT 4.8 10^3/uL (4.0-10.0)
[2023-08-08 14:59] LABS: ALBUMIN 4.5 G/DL (3.2-5.2); ALKALINE PHOSPHATASE 77 U/L (46-116); ALT/SGPT 16 U/L (7.0-40); AST/SGOT 12 U/L (<34); BILIRUBIN,TOTAL 0.9 MG/DL (0.3-1.2); BLOOD UREA NITROGEN 13 MG/DL (9-23); CALCIUM LEVEL 9.7 MG/DL (8.5-10.1); CARBON DIOXIDE LEVEL 30 MMOL/L (20-31); CHLORIDE LEVEL 105 MMOL/L (98-107); CHOLESTEROL LEVEL 158 MG/DL (<200); CHOLESTEROL RISK RATIO 3.68 (<5); CREATININE FOR GFR 0.73 MG/DL (0.70-1.30); GLOMERULAR FILTRATION RATE > 60.0 (>60); GLUCOSE, FASTING 82 MG/DL (60-100); HDL CHOLESTEROL 42.9 MG/DL (>40); LDL CHOLESTEROL 98.3 MG/DL (<100); MAGNESIUM LEVEL 1.9 MG/DL (1.8-2.4); NON-HDL-C 115.1 MG/DL; POTASSIUM SERUM 4.9 MMOL/L (3.5-5.1); SODIUM LEVEL 137 MMOL/L (136-145); TOTAL PROTEIN 7.7 G/DL (5.7-8.2); TRIGLYCERIDES LEVEL 84 MG/DL (<150)
[2023-08-08 15:00] LABS: FREE T4 1.24 NG/DL (0.89-1.76); THYROID STIMULATING HORMONE 1.873 uIU/ML (0.55-4.78); VITAMIN B12 LEVEL 534 PG/ML (211-911)
[2023-08-08 15:01] LABS: TOTAL 25(OH) VITAMIN D 17.8 NG/ML (20.0-100.0)
== END ==
LOC: M PLALAB 10:24
PROVIDERS: ATTEND Physician Assistant Medical
DX: R53.83 Other fatigue (principal); N20.0 Calculus of kidney; E78.1 Pure hyperglyceridemia

== ENCOUNTER 2024-02-20 14:17 | Emergency (ER) | payer OTHER, SELFPAY ==
[~2024-02-20] VITALS: Ht 185.4 cm; Wt 64.7 kg
[2024-02-20] MEDS: ACETAMINOPHEN 325 MG TAB PO ONE (17:09)
[2024-02-20] MEDS ORDERED: ONDA-282 PO (17:20)
[2024-02-20 18:03] VITALS: BP 130/67; TEMP 99.1; O2SAT 98
== END 2024-02-20 18:04 | disposition home or self-care (01) ==
LOC: M ED 14:17
DX: U07.1 COVID-19 (principal); Z88.1 Allergy status to other antibiotic agents; E03.9 Hypothyroidism, unspecified; Z79.890 Hormone replacement therapy

== ENCOUNTER → 2024-03-22 | Outpatient (REF) | payer OTHER, SELFPAY ==
[~2024-03-22] MED LIST changes: +ONDA-282 PO
== END ==
LOC: M SFHCPLAZ 17:09
PROVIDERS: ATTEND Physician Assistant Medical
DX: R30.0 Dysuria (principal)

== ENCOUNTER → 2024-06-04 | Outpatient (CLI) | payer SELFPAY ==
[2024-06-04 18:37] LABS: BASO # 0.1 10^3/uL (0.0-0.2); BASO % 0.9 % (0.0-1.0); EOS # 0.2 10^3/uL (0.0-0.5); EOS % 2.9 % (0.0-3.0); HEMATOCRIT 44.7 % (42.0-52.0); HEMOGLOBIN 15.3 g/dl (13.5-17.5); LYMPH # 2.1 10^3/uL (1.5-5.0); LYMPH % 31.6 % (24.0-44.0); MEAN CORPUSCULAR HEMOGLOBIN 30.9 pg (27.0-33.0); MEAN CORPUSCULAR HGB CONC 34.2 g/dl (32.0-36.5); MEAN CORPUSCULAR VOLUME 90.3 fl (80.0-96.0); MONO # 0.7 10^3/uL (0.0-0.8); MONO % 10.5 % (2.0-8.0); NEUTROPHILS # 3.6 10^3/uL (1.5-8.5); NEUTROPHILS % 53.9 % (36.0-66.0); PLATELET COUNT, AUTOMATED 275 10^3/uL (150-450); RED BLOOD COUNT 4.95 10^6/uL (4.30-6.10); WHITE BLOOD COUNT 6.6 10^3/uL (4.0-10.0)
[2024-06-04 19:05] LABS: ALBUMIN 4.2 G/DL (3.2-5.2); ALKALINE PHOSPHATASE 76 U/L (40-129); ALT/SGPT 19 U/L (7.0-40); AST/SGOT 17 U/L (<34); BILIRUBIN,TOTAL 0.5 MG/DL (0.3-1.2); BLOOD UREA NITROGEN 14 MG/DL (9-23); CALCIUM LEVEL 10.1 MG/DL (8.5-10.1); CARBON DIOXIDE LEVEL 31 MMOL/L (20-31); CHLORIDE LEVEL 102 MMOL/L (98-107); CREATININE FOR GFR 0.96 MG/DL (0.70-1.30); GLOMERULAR FILTRATION RATE > 60.0 (>60); GLUCOSE, FASTING 64 MG/DL (60-100); POTASSIUM SERUM 5.2 MMOL/L (3.5-5.1); PTH INTACT 29.4 PG/ML (18.5-88.0); SODIUM LEVEL 139 MMOL/L (136-145); THYROID STIMULATING HORMONE 2.715 uIU/ML (0.55-4.78); TOTAL 25(OH) VITAMIN D 34.9 NG/ML (20.0-100.0); TOTAL PROTEIN 7.9 G/DL (5.7-8.2)
== END ==
LOC: M PLALAB 15:27
PROVIDERS: ATTEND Physician Assistant Medical
DX: K21.9 Gastro-esophageal reflux disease without esophagitis (principal); E03.9 Hypothyroidism, unspecified; K59.02 Outlet dysfunction constipation; E55.9 Vitamin D deficiency, unspecified; Z13.220 Encounter for screening for lipoid disorders

== ENCOUNTER → 2024-07-30 | Outpatient (CLI) | payer OTHER | LOC: M WHC 14:26 | PROVIDERS: ATTEND Physician Assistant Medical | DX: R10.9 Unspecified abdominal pain (principal) ==

== ENCOUNTER → 2024-09-16 | Outpatient (CLI) | payer OTHER ==
[2024-09-16 17:02] LABS: THYROID STIMULATING HORMONE 1.899 uIU/ML (0.55-4.78)
[2024-09-16 17:04] LABS: ALBUMIN 4.6 G/DL (3.2-5.2); ALKALINE PHOSPHATASE 80 U/L (40-129); ALT/SGPT 16 U/L (7.0-40); AST/SGOT 18 U/L (<34); BILIRUBIN,TOTAL 1.1 MG/DL (0.3-1.2); BLOOD UREA NITROGEN 12 MG/DL (9-23); CALCIUM LEVEL 9.6 MG/DL (8.5-10.1); CARBON DIOXIDE LEVEL 27 MMOL/L (20-31); CHLORIDE LEVEL 101 MMOL/L (98-107); CHOLESTEROL LEVEL 195 MG/DL (<200); CHOLESTEROL RISK RATIO 4.64 (<5); CREATININE FOR GFR 0.66 MG/DL (0.70-1.30); FREE T4 1.25 NG/DL (0.89-1.76); GLOMERULAR FILTRATION RATE > 60.0 (>60); GLUCOSE, FASTING 60 MG/DL (60-100); SODIUM LEVEL 141 MMOL/L (136-145); TOTAL PROTEIN 8.2 G/DL (5.7-8.2); TRIGLYCERIDES LEVEL 130 MG/DL (<150)
[2024-09-16 17:05] LABS: PTH INTACT 25.4 PG/ML (18.5-88.0)
[2024-09-16 17:06] LABS: TOTAL 25(OH) VITAMIN D 21.9 NG/ML (20.0-100.0)
[2024-09-16 17:08] LABS: FREE T3 3.6 PG/ML (2.3-4.2)
== END ==
LOC: M RAD 11:32
PROVIDERS: ATTEND Physician Assistant Medical
DX: E03.9 Hypothyroidism, unspecified (principal); Z13.220 Encounter for screening for lipoid disorders; E55.9 Vitamin D deficiency, unspecified; R19.7 Diarrhea, unspecified; N50.811 Right testicular pain

== ENCOUNTER → 2024-09-21 | Outpatient (CLI) | payer OTHER | LOC: M RAD 16:26 | PROVIDERS: ATTEND Physician Assistant Medical | DX: R10.9 Unspecified abdominal pain (principal); J84.10 Pulmonary fibrosis, unspecified; K59.00 Constipation, unspecified ==

== ENCOUNTER → 2024-11-05 | Outpatient (CLI) | payer OTHER ==
[2024-11-05 18:08] LABS: THYROID STIMULATING HORMONE 1.659 uIU/ML (0.55-4.78)
[2024-11-05 18:09] LABS: FREE T4 1.27 NG/DL (0.89-1.76)
== END ==
LOC: M PLALAB 15:36
PROVIDERS: ATTEND Physician Assistant Medical
DX: K59.02 Outlet dysfunction constipation (principal); E03.9 Hypothyroidism, unspecified